=== PATIENT | male | born 1950 | race Caucasian/White ===

== ENCOUNTER → 2021-08-23 09:12 | Outpatient (CLI) | payer MEDICARE, SELFPAY ==
--- NOTE | 2021-08-24 13:08 | PFTCOMP ---
INTRODUCTION: The patient is a 71-year-old male that presents for pulmonary function studies secondary to a diagnosis of COPD. Respiratory therapy reported good patient effort. Bronchodilators were used during testing. INTERPRETATION: Forced expiration spirometry demonstrates the presence of a severe large airways obstructive ventilatory defect. There was a significant response to aerosolized bronchodilators noted. Spirograms are of good quality but do not plateau indicating slow emptying of the lungs. Body plethysmography was performed and revealed a decreased TLC to 5.43 L, 81% of predicted, indicative of a mild restrictive ventilatory impairment. Diffusing capacity by single breath CO is reduced at 53% of predicted. IMPRESSION: Partially reversible severe mixed ventilatory defect with symmetric reduction in diffusing capacity.
== END ==
PROVIDERS: Referring Provider Internal Medicine Critical Care Medicine; Visit Provider Internal Medicine Critical Care Medicine
DX: J44.9 Chronic obstructive pulmonary disease, unspecified (principal)
CPT/HCPCS: 94060; 94726; 94729

== ENCOUNTER → 2021-08-24 13:43 | Outpatient (CLI) | payer MEDICARE, SELFPAY ==
--- NOTE | 2021-08-24 13:47 | CT_ITS ---
STUDY: LOW DOSE CT LUNG CANCER SCREENING REASON FOR EXAM: Male, 71 years old. Long-term smoking history, 1 pack per day x52 years RADIATION DOSAGE (If Supplied By Facility): CTDIvol = ( 3.02 ) mGy, DLP = ( 115.88 ) mGycm TECHNIQUE: No contrast was administered. Low dose technique was utilized (average mAS-38 and kVp 120). 1.25 mm axial source images with a slice interval of 1.25-mm were reconstructed in lung windows. 2.5 mm axial source images with a slice interval of 2.5-mm were reconstructed in lung windows. 5.0 mm axial source images with a slice interval of 5.0-mm were reconstructed in soft tissue windows. Nodule measured using lung windows on PACS and/or independent workstation with automated measurement of minimum and maximum diameter. Nodule measurement reported as average diameter rounded to the nearest whole number. Growth is defined as an increase ins size of greater than 1.5 mm. COMPARISON: None. FINDINGS: There is severe underlying emphysema with bleb formation scattered throughout both lung danielson, particularly the upper lobes. There are chronic interstitial changes in both lung danielson with evidence of chronic bronchitis but there is no organized infiltrate, suspicious noncalcified mass or nodule, or groundglass opacifications. Soft tissue windows show normal-appearing thyroid gland. No suspicious adenopathy. There are calcified coronary vessels. No pleural or pericardial effusions. Bony structures show degenerative change. Limited cuts through the upper abdomen do not show suspicious abnormality CT/Low Dose CT Lung Screening IMPRESSION: Lung-RADS category 2 - Continue annual screening with LDCT in 12 months. IMPORTANT NOTES FOR USE: ACR Lung-RADS Version 1.1 Assessment Categories Release Date: 2018 Category: Coded 0-4 bases on nodule(s) with highest degree of suspicion. Negative screen is defined as categories 1 and 2; a positive screen is defined as categories 3 and 4. Category 3 and 4A nodules that are unchanged on interval CT should be coded as category 2, and individuals returned to screening in 12 months. Category 4X: Category 3 or 4 nodules with additional imaging findings that increase the suspicion of lung cancer, such as spiculation, GGN that doubles in size in 1 year, enlarged lymph notes, etc. Category Modifiers: S (significant finding unrelated to lung cancer) Electronically Signed: Mario Boyer MD at 17:11 EST , Service support ,
[2021-08-24 14:19] VITALS: PULSE 100; PULSE 104; PULSE 110; PULSE 111; PULSE 113; PULSE 97; PULSE 98; O2SAT 85; O2SAT 91; O2SAT 92; O2SAT 93; O2SAT 94
--- NOTE | 2021-08-24 14:36 | CPS ---
PATIENT RESTED THROUGHOUT TESTING D/T INCREASED WOB. HE EXPERIENCED DIZZINESS WELL INCREASED WOB DURING FIRST MINUTE WITH SPO2 AT 85% ROOM AIR. O2 APPLIED AT 2LPM FOR REMAINDER OF TESTING. HE PREVIOUSLY USED [employer] FOR DME/O2 HOWEVER STATES HE HAS A CONCENTRATOR THAT THEY HAVE NOT SERVICED IN MORE THAN 2 YEARS AND IT WILL NOT WORK (DESPITE MULTIPLE ATTEMPTS AT CONTACTING), THEREFORE HE DOES NOT WANT TO USE THEM FOR DME NOW. WALK INFORMATION FAXED TO ORDERING OFFICE FOR OXYGEN S/U
--- NOTE | 2021-08-25 07:07 | PCM.PSN.6M ---
PSN 6 Minute Walk Test 6 Minute Walk Test 6 Minute Walk Test: 6 Minute Walk Test PSN:6-Minute Walk Test Start: 08/24/21 14:18 Freq: Status: Active Protocol: [id number] Document 08/24/21 14:19 [facility] (Rec: 08/24/21 14:41 [facility] [id number]) 6 Minute Walk Test Date Performed 08/24/21 Time Performed 13:45 Height 5 ft 11 in Weight: 75.75 kg Weight in Pounds 167.[address]: Cristi Hahn Assistive device used: None Pre-test Oxygen Delivery Method Room Air Pulse Ox (%) 93 Pulse Rate (60-100 beats/min) 97 Dyspnea Steven Scale (0-10) 2 1st minute Oxygen Delivery Method Room Air Pulse Ox (%) 85 Pulse Rate (60-100 beats/min) 100 Dyspnea Steven Scale (0-10) 6 Number of Rests Taken 1 Reported Symptoms Increased Work of Breathing, Dizziness 2nd minute Oxygen Flow Rate (L/min) (L/min) 2 Oxygen Delivery Method Nasal Cannula Pulse Ox (%) 94 Pulse Rate (60-100 beats/min) 104 H Dyspnea Steven Scale (0-10) 4 Number of Rests Taken 1 Reported Symptoms Increased Work of Breathing 3rd minute Oxygen Flow Rate (L/min) (L/min) 2 Oxygen Delivery Method Nasal Cannula Pulse Ox (%) 91 Pulse Rate (60-100 beats/min) 113 H Dyspnea Steven Scale (0-10) 5 Number of Rests Taken 1 Reported Symptoms Increased Work of Breathing 4th minute Oxygen Flow Rate (L/min) (L/min) 2 Oxygen Delivery Method Nasal Cannula Pulse Ox (%) 92 Pulse Rate (60-100 beats/min) 110 H Dyspnea Steven Scale (0-10) 5 Number of Rests Taken 1 Reported Symptoms Increased Work of Breathing 5th minute Oxygen Flow Rate (L/min) (L/min) 2 Oxygen Delivery Method Nasal Cannula Pulse Ox (%) 92 Pulse Rate (60-100 beats/min) 111 H Dyspnea Steven Scale (0-10) 5 Number of Rests Taken 1 Reported Symptoms Increased Work of Breathing 6th minute Oxygen Flow Rate (L/min) (L/min) 2 Oxygen Delivery Method Nasal Cannula Pulse Ox (%) 93 Pulse Rate (60-100 beats/min) 110 H Dyspnea Steven Scale (0-10) 4 Number of Rests Taken 1 Reported Symptoms Increased Work of Breathing Post-test Oxygen Delivery Method Room Air Pulse Ox (%) 92 Pulse Rate (60-100 beats/min) 98 Dyspnea Steven Scale (0-10) 3 Reported Symptoms Increased Work of Breathing Full Laps Walked 8 Partial Lap, Number of Tiles Walked 37 Total Distance Walked (ft) 509 08/24/21 14:36 Cardiopulmonary Services by Mayela Kurtz PATIENT RESTED THROUGHOUT TESTING D/T INCREASED WOB. HE EXPERIENCED DIZZINESS WELL INCREASED WOB DURING FIRST MINUTE WITH SPO2 AT 85% ROOM AIR. O2 APPLIED AT 2LPM FOR REMAINDER OF TESTING. HE PREVIOUSLY USED [employer] FOR DME/O2 HOWEVER STATES HE HAS A CONCENTRATOR THAT THEY HAVE NOT SERVICED IN MORE THAN 2 YEARS AND IT WILL NOT WORK (DESPITE MULTIPLE ATTEMPTS AT CONTACTING), THEREFORE HE DOES NOT WANT TO USE THEM FOR DME NOW. WALK INFORMATION FAXED TO ORDERING OFFICE FOR OXYGEN S/U Initialized on 08/24/21 14:36 - END OF NOTE Interpretation Interpretation: The patient ambulated 509 feet over the course of 6 minutes beginning on room air without assistive devices. Pretesting oxygen saturation was noted to be 93% on room air. With ambulation, the samantha oxygen saturation was 85%. 2 L/min of supplemental oxygen was applied, and the patient was able to complete the remainder of the testing while maintaining appropriate oxygen saturations. Recommendations Recommendations: 2 L/min of supplemental oxygen should be utilized with exertion.
== END ==
PROVIDERS: PCP Internal Medicine Critical Care Medicine; Referring Provider Internal Medicine Critical Care Medicine; Visit Provider Internal Medicine Critical Care Medicine
DX: Z12.2 Encounter for screening for malignant neoplasm of respiratory organs (principal); J44.9 Chronic obstructive pulmonary disease, unspecified; F17.211 Nicotine dependence, cigarettes, in remission
CPT/HCPCS: 71271; 94618

== ENCOUNTER 2024-12-21 13:45 | Inpatient (IN) | payer MEDICARE, SELFPAY ==
[2024-12-21] VITALS (10 sets, daily range): BP systolic 114–158; BP diastolic 59–82; PULSE 61–102; RESP 17–26; TEMP 35.8–36.9; O2SAT 89–97; BMI 18.9; BMI 18.6
--- NOTE | 2024-12-21 14:25 | EKG12_ITS ---
Test Reason : SOB Blood Pressure : */* mmHG Vent. Rate : 84 BPM Atrial Rate : 84 BPM P-R Int : 156 ms QRS Dur : 62 ms QT Int : 362 ms P-R-T Axes : 91 60 87 degrees QTcB Int : 427 ms Sinus rhythm with marked sinus arrhythmia Otherwise normal ECG Confirmed by YVETTE WARNER, DENAE ([id number]), news video editor NGHIA DHALIWAL ([id number]) on 12/22/2024 8:47:36 AM Referred By: Confirmed By: DENAE CRAWFORD MD
--- NOTE | 2024-12-21 14:27 | EDS_ITS ---
HPI History of Present Illness Chief Complaint: Shortness of Breath Informant: patient and family Narrative Narrative: 74-year-old male presenting to the emergency room with dyspnea. Patient states he has a history of COPD and asthma. He states that he was seeing Dr. Hahn and Jazmyn Aguilar with [facility]. He states that he went and saw Dr. Reyes up but has not seen him any longer. This current therapy includes albuterol rescue inhaler and Breztri. He states he has a nebulizer at home but does not seem like it is working as well. Patient used to have oxygen but because of insurance cost he has not been using it. He notes over the wintertime he has had a 35 pound weight loss. He states that his cough is not productive of mucus but feels like it should be. Denies a fever. This particular episode of dyspnea is not so much an episode as it has been more chronic over the winter months. He states that he can barely take a shower without being very short of breath. Family notes that he is basically just been staying in his house. He went saw primary care today and they referred him to emergency. He states that he is agreeable to coming to the emergency but does not want to stay in the hospital because his son here and it left a bad taste in his mouth. Patient quit smoking in 2017. Prior to that he was a greater than [id number] smoker. He notes that he will occasionally get pain in his chest that goes from the right shoulder to the left shoulder. He states that when he starts to cough forcefully he will get some sharp pains in the right anterior chest. [facility] Medical History Ex-smoker Emphysema lung COPD (chronic obstructive pulmonary disease) Home Medications ?Medication ?Instructions ?Recorded ?Last Taken ?Type albuterol sulfate 90 mcg/actuation 2 puff inhalation Q 6H PRN 08/08/21 Unknown History aerosol inhaler (Ventolin HFA) lisinopril 5 mg tablet 5 mg PO DAILY 08/08/21 Unkno wn History omeprazole 40 mg capsule,delayed 40 mg PO DAILY Unknown History release fluticasone propionate 220 2 inh inhalation BID #12 gr ams 02/05/22 Unknown Rx mcg/actuation HFA aerosol inhaler (Flovent HFA) albuterol sulfate 2.5 mg/3 mL 2.5 mg (3 mL) inhalation Q4H PRN 03/06/22 Unknown Rx (0.083 %) solution for nebulization Sob &/Or Wheezing #180 mL Allergy/AdvReac Type Severity Reaction Status Date / Time doxycycline Allergy blisters, Verified 12/21/24 13:45 burning red skin Family History Mother Cancer Brother Cancer Social History Smoking Status: Former smoker quit date: 10/06/16 pack-years: 50 alcohol intake: current ROS ROS ED Constitutional Constitutional ED: Reports weight loss; Denies chills or fever(s) Eyes Eyes: Denies change in vision or diplopia ENT ENT ED: Denies ear pain, rhinorrhea or sore throat Cardiovascular Cardiovascular: Denies chest pain, orthopnea, palpitations or racing heartbeat Respiratory/Chest Respiratory/Chest: Reports cough, dyspnea and dyspnea on exertion; Denies ortho pnea Gastrointestinal Gastrointestinal: Denies abdominal pain, diarrhea, nausea or vomiting Genitourinary Genitourinary ED: Denies dysuria, hematuria or urinary frequency Musculoskeletal Musculoskeletal: Denies arthralgias or myalgias Integumentary Denies abscess or rash Neurologic Neurologic: Denies headache(s) or weakness Psychiatric Psychiatric: Denies anxiety, depression, suicidal ideation or suicidal thoughts Endocrine Endocrinology: Denies polydipsia, polyphagia or polyuria Allergic/Immunologic Allergic/Immunologic ED: Denies mouth swelling, tongue swelling or urticaria EXAM Physical Exam Const Vital Signs: 12/21/24 13:45 12/21/24 13:45 12/21/24 13:48 Temperature 97.1 F L 98 F Temperature Source Temporal Oral Pulse Rate 102 H 97 61 Respiratory Rate 26 H 22 H Respiratory Effort Respiratory Depth Respiratory Pattern Blood Pressure 158/79 H 123/70 H Blood Pressure Mean 105 87 Pulse Ox 89 94 97 Oxygen Delivery Method Room Air Room Air Nasal Cannula Oxygen Flow Rate (L/min) 3 12/21/24 14:00 12/21/24 14:57 12/21/24 14:59 Temperature Temperature Source Oral Pulse Rate 79 72 Respiratory Rate 17 18 Respiratory Effort Short of Breath Respiratory Depth Shallow Respiratory Pattern Tachypnea Normal Blood Pressure 122/78 H Blood Pressure Mean 92 Pulse Ox 94 Oxygen Delivery Method Nasal Cannula Nasal Cannula Oxygen Flow Rate (L/min) 3 2 12/21/24 16:14 Temperature Temperature Source Pulse Rate 79 Respiratory Rate 24 H Respiratory Effort Respiratory Depth Respiratory Pattern Blood Pressure 114/74 Blood Pressure Mean 87 Pulse Ox 94 Oxygen Delivery Method Nasal Cannula Oxygen Flow Rate (L/min) 2 Positive well nourished, well developed and cachectic General Appearance ED: well developed and cachectic Nutritional Appearance: cachectic HEENT Reports normocephalic, head/scalp atraumatic and moist mucous membranes Eyes PERRL and EOMs intact bilaterally Neck no lymphadenopathy, supple and no JVD Resp Resp Narrative: Patient is dyspneic at rest and cannot speak a full sentence without taking a breath. He has a moist rhonchorous cough but it is nonproductive. Auscultation: diminished lung sounds Cardio regular rate, regular rhythm and no murmurs GI normal to inspection, nondistended, normoactive bowel sounds and non-tender Palpation: soft Back/Spine no CVA tenderness and normal ROM Extremity normal to inspection General Extremety ED: Negative for edema General Extremity: Negative for edema Neuro oriented x3 and CN's II-XII intact bilaterally Sensorium / Orientation: alert Motor Exam: strength 5/5 throughout Psych mental status grossly normal Mood & Affect: Negative for depressed or tearful Skin no rashes or lesions noted and no wounds MDM MDM MDM Narrative Medical decision making narrative: Differential diagnosis includes but not limited to COPD exacerbation worsening COPD pneumonia postobstructive pneumonia pleural effusion heart failure malignancy pneumothorax My independent interpretation of the plain films of the chest is pneumonia with possible malignancy and small pleural effusion. Chronic changes associated with emphysema are noted. Patient's white count 12.2 with a hemoglobin of 12.1 platelet count is 618. BMP liver enzymes troponin within normal limits. CTA of the chest was obtained which demonstrates no pulmonary embolism. Areas of consolidation on the right. Cannot rule out a malignancy. Please see radiologist read for full details. Patient received a DuoNeb and Solu-Medrol. We also administered Rocephin azithromycin. Blood cultures obtained. Patient is agreeable to hospitalization. He has been receiving supplemental oxygen to help with his at rest hypoxia/dyspnea History & Record Review Discussion w/independent historian: Patient and Family Lab Data Attestation: I reviewed the patient's lab results. Labs: Laboratory Results - last 24 hr 12/21/24 14:40 WBC 12.2 H RBC 4.15 L Hgb 12.1 L Hct 37.3 L MCV 89.9 MCH 29.2 MCHC 32.4 RDW Std Deviation 46.7 H RDW Coeff of Joyce 14.1 Plt Count 618 H MPV 8.6 Immature Gran % (Auto) 0.400 Neut % (Auto) 80.8 H Lymph % (Auto) 8.9 L [place] % (Auto) 7.7 Eos % (Auto) 1.5 Baso % (Auto) 0.7 Absolute Neuts (auto) 9.9 H Absolute Lymphs (auto) 1.09 Nucleated RBC % 0 Sodium 139 Potassium 4.3 Chloride 104 Carbon Dioxide 24.3 Anion Gap 11 BUN 18 Creatinine 0.90 Estim Creat Clear Calc 62.84 Est GFR (MDRD) Non-Af 90 BUN/Creatinine Ratio 19.8 Glucose 94 Calcium 9.5 Total Bilirubin 0.17 Direct Bilirubin 0.08 AST 11 ALT 6 Alkaline Phosphatase 77 Troponin T High Sens 19 Total Protein 7.0 Albumin 3.4 Globulin 3.6 Radiography Diagnostic Testing: Clinical Impression(s) from Imaging Studies Chest X-Ray 12/21/24 15:13 IMPRESSION: 1. Emphysema with considerable patchy opacities on the RIGHT which may reflect pneumonia however there is suggestion of a 3.1 cm cavitary lesion in this region, not well delineated. Recommend CT, ideally with IV contrast. 2. Suspected trace to small RIGHT pleural effusion. 3. Additional description as above. Reading Location: [facility] Chest CTA 12/21/24 15:40 IMPRESSION: 1. No pulmonary embolism. 2. COPD with right pleural effusion and scattered areas of partial consolidation, likely pneumonia. Underlying mass can not be entirely excluded. This is new since the prior exam. Repeat CT in 3 months is recommended. Reading Location: [facility] EKG Initial EKG: Attestation: I personally reviewed and interpreted this EKG as follows: Comments: Sinus rhythm with a ventricular rate of 84 bpm. Noticed sinus arrhythmia. Management Discussion w/another healthcare provider: Hospitalist (Mame) Discharge Plan Triage Chief Complaint: Shortness of Breath ED Provider: Erick Chapa Dx/Rx/DC Orders Prescriptions: No Action lisinopril 5 mg tablet 5 mg PO DAILY albuterol sulfate [Ventolin HFA] 90 mcg/actuation HFA aerosol inhaler 2 puff inhalation Q6H PRN omeprazole 40 mg capsule,delayed release(DR/EC) 40 mg PO DAILY albuterol sulfate 2.5 mg /3 mL (0.083 %) solution for nebulization 2.5 mg inhalation Q4H PRN (Reason: Sob &/Or Wheezing) Qty: 180 3RF Flovent HFA 220 mcg/actuation HFA aerosol inhaler 2 inh inhalation BID Qty: 12 6RF Rx Instructions: administer with spacer Primary Care Provider: Hermes Castellon NP Referrals: Hermes Castellon [employer] [employer], [facility] [employer] [facility] [Primary Care Provider] - Print Language: Swedish
[2024-12-21] MEDS: Ipratropium/Albuterol Sulfate 3 ML AMPUL.NEB INHALATION ×2 (14:45→19:15)
[2024-12-21 14:56] LABS: Absolute Lymphocyte Count 1.09 X10^3/uL (0.83-4.51); Absolute Neutrophil Count 9.9 X10^3/uL (2.0-7.7); Basophil# 0.09 X10^3/uL; Basophil% 0.7 % (0-1); Eosinophil# 0.18 X10^3/uL; Eosinophils% 1.5 % (0-5); Hematocrit 37.3 % (40-54); Hemoglobin 12.1 g/dL (13.0-16.5); Lymphocyte # 1.09 X10^3/ul (0.83-4.51); Lymphocyte % 8.9 % (19-41); Mean Corp Hgb Conc 32.4 g/dL (32-36); Mean Corpuscular Hgb 29.2 pg (27.0-32.0); Mean Corpuscular Volume 89.9 fL (80-94); Mean Platelet Vol. 8.6 fl (6.2-12.0); Monocyte# 0.94 X10^3/uL; Monocyte% 7.7 % (0-10); NRBC Flagged by Analyzer 0 % (0-5); Neutrophil # 9.85 X10^3/uL (2.7-7.7); Neutrophil % 80.8 % (47-70); Platelet Count 618 K/mm3 (150-450); RBC Distribution Width CV 14.1 % (11.6-14.6); RBC Distribution Width SD 46.7 fl (35.1-43.9); Red Blood Count 4.15 M/mm3 (4.6-6.2); White Blood Count 12.2 K/mm3 (4.4-11.0)
[2024-12-21] MEDS: MethylPREDNISolone 125 MG/2 ML Vial IV (14:57)
--- NOTE | 2024-12-21 15:13 | RAD_ITS ---
PROCEDURE: CHEST 1 VIEW (PORTABLE) (RADCXPA_P), 12/21/2024 REASON FOR EXAM: DYSPNEA TECHNIQUE: A single portable AP view of the chest was obtained. COMPARISON: 08/24/2021 FINDINGS: Heart: Unremarkable. Mediastinum: Atherosclerosis in the aortic arch. Lungs/pleura: Emphysema. Considerable patchy opacities throughout the RIGHT lung, greatest in the mid lung zone where there is suggestion of a possible cavitary lesion measuring roughly 3.1 cm. Suspect a trace to small RIGHT pleural effusion.. No visible pneumothorax. Bones: Unremarkable. Lines and support devices: None. RAD/Chest 1 View (Portable) IMPRESSION: 1. Emphysema with considerable patchy opacities on the RIGHT which may reflect pneumonia however there is suggestion of a 3.1 cm cavitary lesion in this region, not well delineated. Recommend CT, ideally wit h IV contrast. 2. Suspected trace to small RIGHT pleural effusion. 3. Additional description as above. Reading Location: [id number]
[2024-12-21 15:15] LABS: AST(SGOT) 11 U/L (<=37); Alanine Aminotransfer ALT/SGPT 6 U/L (<=46); Albumin, Serum 3.4 g/dL (3.4-4.8); Alkaline Phosphatase 77 U/L (40-129); Anion Gap 11 (5-15); BUN 18 mg/dL (4-19); BUN/Creat Ratio 19.8 RATIO (10-20); Bilirubin, Direct 0.08 mg/dL (0.00-0.30); Calcium,Total 9.5 mg/dL (7.6-11.0); Carbon Dioxide 24.3 mmol/L (21.0-32.0); Chloride 104 mmol/L (98-108); EST Glomerular Filtration Rate 90 (>60); Estimated Creatinine Clearance 62.84 ml/min (50-250); Globulin 3.6 g/dL (2.2-4.2); Glucose 94 mg/dL (70-99); Potassium 4.3 mmol/L (3.3-5.1); Sodium Level 139 mmol/L (133-145); Total Bilirubin 0.17 mg/dL (0.00-1.30); Troponin T High Sensitivity 19 ng/L (<=22)
--- NOTE | 2024-12-21 15:40 | CT_ITS ---
EXAM: CT Angiography Chest Without and With Intravenous Contrast CLINICAL INDICATION: DYSPNEA ? R LUNG MASS ? PE TECHNIQUE: Axial computed tomographic angiography images of the chest without and with intravenous contrast. This CT exam was performed using one or more of the following dose reduction techniques: automated exposure control, adjustment of the mA and/or kV according to patient size, and/or use of iterative reconstruction technique. MIP reconstructed images were created and reviewed. COMPARISON: CTA Chest dated 08/24/2021 FINDINGS: PULMONARY ARTERIES: Unremarkable. No pulmonary embolism. AORTA: No acute findings. No thoracic aortic aneurysm. LUNGS AND PLEURAL SPACES: COPD with right pleural effusion and scattered areas of partial consolidation, likely pneumonia. Underlying mass can not be entirely excluded. This is new since the prior exam. Repeat CT in 3 months is recommended. HEART: Unremarkable. No cardiomegaly. No significant pericardial effusion. No evidence of RV dysfunction. BONES/JOINTS: No acute fracture. No dislocation. SOFT TISSUES: Unremarkable. LYMPH NODES: Unremarkable. No enlarged lymph nodes. CT/CTA Chest W/WO Contrast IMPRESSION: 1. No pulmonary embolism. 2. COPD with right pleural effusion and scattered areas of partial consolidati on, likely pneumonia. Underlying mass can not be entirely excluded. This is new since the prior exam. Repeat CT in 3 months is recommended. Reading Location: [facility]
--- NOTE | 2024-12-21 16:39 | PCM.HP.STD ---
HPI - General General Date of Admission: 12/21/24 Date of Service: 12/21/24 Chief Complaint: Worsening shortness of breath with weight loss HPI Narrative YUMIKO QUIROGA, is a 74 M who presented to [facility] ED on 12/21/2024 with worsening shortness of breath and weight loss. Patient lives at home with himself. Has history of smoking, quit back in 2017. He previously followed with pulmonology here back in 2021 for COPD with emphysema and chronic respiratory failure on 2 L nasal cannula. However, due to issues with paying for oxygen he stopped following there and established briefly with Dr. Zamudio. Notes that he did not care for Dr. Zamudio and now has not seen a lung doctor for the past few years. He also has not had home oxygen for the past few years. He has had a chronic cough with worsening shortness of breath over the past 3 to 4 months. He also reports a roughly 30 pound weight loss over that time. For these reasons he came in today for further evaluation. Was requiring 2 L nasal cannula in the ED to maintain appropriate oxygen saturations. Was otherwise afebrile, normotensive and in normal sinus rhythm. Labs notable for WBC count 12, otherwise CBC and CMP benign. CTA chest showed no PE but did show COPD with right pleural effusion and scattered areas of partial consolidation with concern for underlying mass. Given these findings, hospitalist was contacted for admission. I saw the patient at bedside in the ED, daughter was present. Patient was mildly fatigued and thin appearing but otherwise sitting up comfortably in bed, conversing normally and in no acute distress. He denied any shortness of breath at rest. Did have a few episodes of dry cough during our encounter. He was initially adamant that he did not want to come into the hospital as his son here and it is difficult for him to be here. However, after ED physician talked with him and his daughter he was agreeable to staying. He does note that he is able to do things for himself at home but he has felt weaker than his normal recently. No other acute concerns at this time. [facility] Medical History (Updated 12/21/24 @ 17:46 by Catherine Kelley) Asthma Ex-smoker Emphysema lung COPD (chronic obstructive pulmonary disease) Home Medications ?Medication ?Instructions ?Recorded ?Last Taken ?Type albuterol sulfate 90 mcg/actuation 2 puff inhalation Q6H PRN 08/08/21 Unknown History aerosol inhaler (Ventolin HFA) shortness of breath or wheezing lisinopril 5 mg tablet 5 mg PO DAILY 08/08/21 Unknown History omeprazole 40 mg capsule,delayed 40 mg PO DAILY 08/08/21 Unknown History release fluticasone propionate 220 2 inh inhalation BID #12 grams 02/05/22 Unknown Rx mcg/actuation HFA aerosol inhaler (Flovent HFA) albuterol sulfate 2.5 mg/3 mL 2.5 mg (3 mL) inhalation Q4H PRN 03/06/22 Unknown Rx (0.083 %) solution for nebulization Sob &/Or Wheezing #180 mL amlodipine 5 mg tablet 5 mg PO DAILY 12/21/24 Unknown History budesonide 160 mcg-glycopyr 9 2 inh inhalation BID 12/21/24 Unknown History mcg-formot 4.8 mcg/actuation HFA inhaler (Breztri Aerosphere) chlorthalidone 25 mg tablet 25 mg PO DAILY 12/21/24 Unknown History diclofenac sodium 1 % topical gel 2 ea topical 4X/DAY PRN pain 12/21/24 Unknown History guaifenesin 600 mg tablet, 600 mg PO Q12H 12/21/24 12/21/24 History extended release 12 hr (Mucus Relief ER) montelukast 10 mg tablet 10 mg PO QHS 12/21/24 Unknown History tamsulosin 0.4 mg capsule 0.4 mg PO DAILY 12/21/24 Unknown History Allergy/AdvReac Type Severity Reaction Status Date / Time doxycycline Allergy blisters, Verified 12/21/24 13:45 burning red skin Family History Mother Cancer Brother Cancer Social History Smoking Status: Former smoker quit date: 10/06/16 pack-years: 50 alcohol intake: current ROS Constitutional Constitutional: Reports fatigue and weakness; Denies chills or fever(s) Eyes Eyes: Denies change in vision Cardiovascular Cardiovascular: Denies chest pain Respiratory/Chest Respiratory/Chest: Reports cough and shortness of breath with exertion; Denies productive cough, shortness of breath at rest or wheezing Gastrointestinal Gastrointestinal: Denies abdominal pain Musculoskeletal Musculoskeletal: Denies arthralgias or myalgias Neurologic Neurologic: Denies dizziness or headache(s) Vital Signs Vital Signs Vital Signs: 12/21/24 13:45 12/21/24 13:45 12/21/24 13:48 Temperature 97.1 F L 98 F Temperature Source Temporal Oral Pulse Rate 102 H 97 61 Respiratory Rate 26 H 22 H Respiratory Effort Respiratory Depth Respiratory Pattern Blood Pressure 158/79 H 123/70 H Blood Pressure Mean 105 87 Pulse Ox 89 94 97 Oxygen Delivery Method Room Air Room Air Nasal Cannula Oxygen Flow Rate (L/min) 3 12/21/24 14:00 12/21/24 14:57 12/21/24 14:59 Temperature Temperature Source Oral Pulse Rate 79 72 Respiratory Rate 17 18 Respiratory Effort Short of Breath Respiratory Depth Shallow Respiratory Pattern Tachypnea Normal Blood Pressure 122/78 H Blood Pressure Mean 92 Pulse Ox 94 Oxygen Delivery Method Nasal Cannula Nasal Cannula Oxygen Flow Rate (L/min) 3 2 12/21/24 16:14 Temperature Temperature Source Pulse Rate 79 Respiratory Rate 24 H Respiratory Effort Respiratory Depth Respiratory Pattern Blood Pressure 114/74 Blood Pressure Mean 87 Pulse Ox 94 Oxygen Delivery Method Nasal Cannula Oxygen Flow Rate (L/min) 2 Weight Weight: 61.7 kg Body Mass Index (BMI) 18.9 Physical Exam Const alert, oriented x3 and no apparent distress Constitutional Narrative: Elderly male, thin and somewhat cachectic appearing, mildly fatigued appearing but otherwise sitting up comfortably in bed, conversing normally and in no acute distress. General Appearance: cooperative and comfortable HEENT normocephalic, head/scalp atraumatic, hearing grossly normal bilaterally, nasal mucous membranes and turbinates normal and moist oral mucous membranes Eyes PERRL, EOMs intact bilaterally and conjunctivae normal Neck full ROM Chest inspection of chest normal Resp normal respiratory effort and no use of accessory muscles Resp Narrative: Breathing comfortably on 2 L nasal cannula at rest. Decreased breath sounds in right upper to midlung zone with mild wheezing and crackles noted in that area. Otherwise fairly good air movement throughout. Cardio regular rate, regular rhythm, no murmurs and peripheral pulses 2+ throughout GI normal to inspection, nondistended, normoactive bowel sounds, soft to palpation, non-tender and non-distended Back/Spine normal ROM Extremity normal to inspection, full ROM and no pedal edema Skin no rashes or lesions noted Neuro moves all extremities and no focal motor deficits Speech: speech normal Psych mental status grossly normal Results Lab / Micro Data 12/21/24 14:40 12/21/24 14:40 Labs: Laboratory Results - last 24 hr 12/21/24 14:40: WBC 12.2 H, RBC 4.15 L, Hgb 12.1 L, Hct 37.3 L, MCV 89.9, MCH 29.2, MCHC 32.4, RDW Std Deviation 46.7 H, RDW Coeff of Joyce 14.1, Plt Count 618 H, MPV 8.6, Immature Gran % (Auto) 0.400, Neut % (Auto) 80.8 H, Lymph % (Auto) 8.9 L, [place] % (Auto) 7.7, Eos % (Auto) 1.5, Baso % (Auto) 0.7, Absolute Neuts (auto) 9.9 H, Absolute Lymphs (auto) 1.09, Nucleated RBC % 0, Sodium 139, Potassium 4.3, Chloride 104, Carbon Dioxide 24.3, Anion Gap 11, BUN 18, Creatinine 0.90, Estim Creat Clear Calc 62.84, Est GFR (MDRD) Non-Af 90, BUN/Creatinine Ratio 19.8, Glucose 94, Calcium 9.5, Total Bilirubin 0.17, Direct Bilirubin 0.08, AST 11, ALT 6, Alkaline Phosphatase 77, Troponin T High Sens 19, Total Protein 7.0, Albumin 3.4, Globulin 3.6 Imaging Radiology Impression Chest X-Ray 12/21/24 15:13 IMPRESSION: 1. Emphysema with considerable patchy opacities on the RIGHT which may reflect pneumonia however there is suggestion of a 3.1 cm cavitary lesion in this region, not well delineated. Recommend CT, ideally with IV contrast. 2. Suspected trace to small RIGHT pleural effusion. 3. Additional description as above. Reading Location: [facility] Chest CTA 12/21/24 15:40 IMPRESSION: 1. No pulmonary embolism. 2. COPD with right pleural effusion and scattered areas of partial consolidation, likely pneumonia. Underlying mass can not be entirely excluded. This is new since the prior exam. Repeat CT in 3 months is recommended. Reading Location: [facility] Assessment & Plan Assessment/Plan (1) Pneumonia: (2) Chronic respiratory failure with hypoxia: (3) Weight loss: PLAN: Plan Patient is a 74-year-old male who presented to [facility] ED on 12/21/2024 with worsening shortness of breath and weight loss. 1. Concern for new lung cancer with right pleural effusion and postobstructive pneumonia ? Admit under inpatient status to PCU. Pulmonology consulted. CTA chest showed COPD changes with right pleural effusion and scattered areas of partial consolidation with concern for underlying mass. Given his significant recent weight loss and smoking history, highest concern is for new lung cancer with postobstructive pneumonia. Will keep n.p.o. at midnight for possible bronchoscopy tomorrow. Will treat pneumonia with vancomycin and cefepime for now. Sputum culture ordered. Appreciate further pulmonology recommendations. 2. 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 Previously followed with outpatient pulmonology. Was previously on 2 L nasal cannula at home but self discontinued oxygen due to cost. Lower concern for true COPD exacerbation at this time, will hold on IV steroids and treat with DuoNebs only as needed. Continue home montelukast and long-acting inhaler. Will presumably need supplemental oxygen on discharge. 3. Concern for malnutrition ? Nutrition consulted. BMI 18 on admit. Suspect secondary to weight loss in setting of suspected cancer. 4. Acute debility ? PT/OT/case management consulted. Patient lives at home alone and reports worsening weakness in setting of suspected cancer. Appreciate therapy recommendations. Chronic medical conditions: ? Hypertension: Continue home amlodipine. Will hold chlorthalidone and lisinopril for now, restart as needed. ? GERD: Continue home PPI. ? BPH with obstructive symptoms: Continue home Flomax. ? Former tobacco use: Encouraged continued cessation. DVT prophylaxis: Lovenox CODE STATUS: DNR CCA, DNI Expected disposition: Home, 2 to 3 days Total clinical time spent by myself addressing the patient's medical issues, reviewing all the data, and collaborating with patient's care team: 75 minutes. Charges/Coding Visit Charges Inpatient E&M: 12652 Init Hosp L3
[2024-12-21] MEDS: Ceftriaxone 1 GM/50 ML BAG IV (17:07)
[2024-12-21] MEDS: Azithromycin 500 MG in 0.9% Normal Saline (250mL Bag) 250 ML 255 MG IV (17:47)
[2024-12-21] MEDS: Vancomycin HCl 1,500 MG in 0.9% Normal Saline (500mL Bag) 500 ML 250 MG IV (18:41)
--- NOTE | 2024-12-21 18:48 | PCM.RX.CS ---
Consult Antibiotic Management Pharmacy has been consulted to manage selected antibiotic: Vancomycin Type of Intervention Type of Consult: New start Suspected Infection Suspected Infection: Pneumonia Labs Labs: Sodium 139 mmol/L (133-145) 12/21/24 14:40 Potassium 4.3 mmol/L (3.3-5.1) 12/21/24 14:40 Chloride 104 mmol/L (98-108) 12/21/24 14:40 Carbon Dioxide 24.3 mmol/L (21.0-32.0) 12/21/24 14:40 Anion Gap 11 (5-15) 12/21/24 14:40 BUN 18 mg/dL (4-19) 12/21/24 14:40 Creatinine 0.90 mg/dL (0.70-1.20) 12/21/24 14:40 Est GFR (MDRD) Non-Af 90 (>60) 12/21/24 14:40 BUN/Creatinine Ratio 19.8 RATIO (10-20) 12/21/24 14:40 Glucose 94 mg/dL (70-99) 12/21/24 14:40 Dosing Weight Weight used for dosin.6 kg Estimated Creatinine Clearance Estimated Creatinine Clearance: 63 ML/MIN Goal Trough Goal Trough: 15-20 mcg/mL Pharmacy Plan for Drug Dosing Pharmacy Plan for Drug Dosing: Give initial load dose of 1500mg IV x1, then continue with 750mg q12h. Check a trough before the 4th overall dose. Pharmacy Service will continue to monitor and adjust dosing as required. Follow-Up Labs Follow-Up Labs: Trough: Vancomycin Date/Time Labs Ordered Labs to be done on [date and time ordered]: 12/23/24 06:30
[2024-12-21] MEDS: Budesonide Respules 0.5 MG/2 ML AMPUL.NEB. INHALATION (19:15)
[2024-12-21] MEDS: Cefepime HCl 2 GM in 0.9% Normal Saline (100mL MB+) 100 ML IV (22:00)
[2024-12-21] MEDS: Montelukast 10 MG Tablet PO (22:04)
[2024-12-22] VITALS (8 sets, daily range): BP systolic 105–132; BP diastolic 62–96; PULSE 60–98; RESP 16–20; TEMP 36.4–36.6; O2SAT 91–95
[2024-12-22] MEDS: Cefepime HCl 2 GM in 0.9% Normal Saline (100mL MB+) 100 ML IV ×3 (05:29→21:24)
[2024-12-22 05:42] LABS: Hematocrit 33.8 % (40-54); Mean Corp Hgb Conc 32.5 g/dL (32-36); Mean Corpuscular Hgb 28.7 pg (27.0-32.0); Mean Corpuscular Volume 88.3 fL (80-94); Mean Platelet Vol. 8.9 fl (6.2-12.0); Platelet Count 570 K/mm3 (150-450); RBC Distribution Width CV 14.4 % (11.6-14.6); RBC Distribution Width SD 46.4 fl (35.1-43.9); Red Blood Count 3.83 M/mm3 (4.6-6.2)
[2024-12-22] MEDS: Vancomycin HCl 750 MG in 0.9% Normal Saline (250mL Bag) 250 ML 250 MG IV ×2 (06:11→18:10)
[2024-12-22 06:14] LABS: Anion Gap 10 (5-15); BUN 18 mg/dL (4-19); Calcium,Total 9.2 mg/dL (7.6-11.0); Carbon Dioxide 23.8 mmol/L (21.0-32.0); Chloride 104 mmol/L (98-108); Creatinine, Serum 0.76 mg/dL (0.70-1.20); EST Glomerular Filtration Rate 94 (>60); Estimated Creatinine Clearance 69.44 ml/min (50-250); Glucose 159 mg/dL (70-99); Potassium 4.2 mmol/L (3.3-5.1); Sodium Level 138 mmol/L (133-145)
[2024-12-22] MEDS: Budesonide Respules 0.5 MG/2 ML AMPUL.NEB. INHALATION ×2 (07:04→19:20)
[2024-12-22] MEDS: Albuterol 2.5 MG/3 ML VIAL.NEB. INHALATION (07:04)
--- NOTE | 2024-12-22 07:47 | PCM.PN.HOSP ---
Reason for Visit Reason for Visit: Diagnoses Pneumonia, unspecified organism (12/21/24) Chronic respiratory failure with hypoxia (12/21/24) Abnormal weight loss (12/21/24) Objective Data Objective Data Vital Signs: Vital Signs Temp Pulse Resp BP Pulse Ox O2 Del Method O2 Flow Rate 97.9 F 60 18 105/62 95 Nasal Cannula 2 12/22/24 03:20 12/22/24 03:20 12/22/24 03:20 12/22/24 03:20 12/22/24 03:20 12/22/24 03:20 12/22/24 03:20 Oxygen Flow Rate (L/min) 2 Oxygen Delivery Method Nasal Cannula Weight: 133 lb 9.602 oz Body Mass Index (BMI) 18.6 Intake & Output: Intake and Output for Last 24 Hours 12/20/24 12/21/24 12/22/24 23:59 23:59 23:59 Intake Total 935.00 / 935.00 365 / 365 Balance 935.00 / 935.00 365 / 365 Lab / Micro Data 12/22/24 04:28 12/22/24 04:28 Labs: Laboratory Results - last 24 hr 12/21/24 14:40: WBC 12.2 H, RBC 4.15 L, Hgb 12.1 L, Hct 37.3 L, MCV 89.9, MCH 29.2, MCHC 32.4, RDW Std Deviation 46.7 H, RDW Coeff of Joyce 14.1, Plt Count 618 H, MPV 8.6, Immature Gran % (Auto) 0.400, Neut % (Auto) 80.8 H, Lymph % (Auto) 8.9 L, [place] % (Auto) 7.7, Eos % (Auto) 1.5, Baso % (Auto) 0.7, Absolute Neuts (auto) 9.9 H, Absolute Lymphs (auto) 1.09, Nucleated RBC % 0, Sodium 139, Potassium 4.3, Chloride 104, Carbon Dioxide 24.3, Anion Gap 11, BUN 18, Creatinine 0.90, Estim Creat Clear Calc 62.84, Est GFR (MDRD) Non-Af 90, BUN/Creatinine Ratio 19.8, Glucose 94, Calcium 9.5, Total Bilirubin 0.17, Direct Bilirubin 0.08, AST 11, ALT 6, Alkaline Phosphatase 77, Troponin T High Sens 19, Total Protein 7.0, Albumin 3.4, Globulin 3.6 12/22/24 04:28: WBC 4.0 L, RBC 3.83 L, Hgb 11.0 L, Hct 33.8 L, MCV 88.3, MCH 28.7, MCHC 32.5, RDW Std Deviation 46.4 H, RDW Coeff of Joyce 14.4, Plt Count 570 H, MPV 8.9, Sodium 138, Potassium 4.2, Chloride 104, Carbon Dioxide 23.8, Anion Gap 10, BUN 18, Creatinine 0.76, Estim Creat Clear Calc 69.44, Est GFR (MDRD) Non-Af 94, BUN/Creatinine Ratio 24.0 H, Glucose 159 H, Calcium 9.2 Radiography Diagnostic Testing: Radiology Impression Chest X-Ray 12/21/24 15:13 IMPRESSION: 1. Emphysema with considerable patchy opacities on the RIGHT which may reflect pneumonia however there is suggestion of a 3.1 cm cavitary lesion in this region, not well delineated. Recommend CT, ideally with IV contrast. 2. Suspected trace to small RIGHT pleural effusion. 3. Additional description as above. Reading Location: [facility] Chest CTA 12/21/24 15:40 IMPRESSION: 1. No pulmonary embolism. 2. COPD with right pleural effusion and scattered areas of partial consolidation, likely pneumonia. Underlying mass can not be entirely excluded. This is new since the prior exam. Repeat CT in 3 months is recommended. Reading Location: [facility] Physical Exam Narrative Seen and examined. Patient has symptoms of shortness of breath, on and off cough with greenish-yellow sputum and dyspnea ongoing since July 2024. Did not measure temperature. Physical exam General: Alert, Oriented x3, Cooperative HEENT: Hard of hearing. Atraumatic, PERRLA, EOMI, Normocephalic Oral: Oral mucosa dry no Gingival or Mucosal Lesions/ Ulcerations Neck: Supple, No JVD, Negative Carotid Bruits Chest wall/Lungs: Air entry diminished in bilateral lung bases. Bilateral coarse crepitations worse in right lung base Cardiovascular: Regular rate, Regular Rhythm, Normal S1, Normal S2, No M/G/R Abdomen: Bowel Sounds Present, Soft, Non Tender, Non-Distended : No dysuria. No renal angle tenderness. No suprapubic tenderness. Extremities: No edema, Capillary Refill Less than 3 Seconds Skin: No rashes, No breakdown Musculoskeletal: No Tenderness to Palpation of Joints or Extremities. ROM restricted Neurological: Cranial nerves II-XII grossly intact, DTR 2+/4. No acute focal neurological deficit. Psych/Mental Status: Flat affect Assessment & Plan Assessment/Plan (1) Pneumonia: (2) Chronic respiratory failure with hypoxia: (3) Weight loss: PLAN: Plan Patient is a 74-year-old male who presented to [facility] ED on 12/21/2024 with worsening shortness of breath and weight loss. 1. Right lower lobe consolidation with right pleural effusion with suspicion of neoplasm and postobstructive pneumonia. Patient is being admitted in PCU. CTA chest immediately reviewed and shows no pulmonary embolism. Right lower lobe shows scattered areas of partial consolidation likely pneumonia and underlying mass. There is new since prior exam of CT low-dose screening in August 2021 There is no pulmonary service available in person in the hospital for bronchoscopy. Tele PCC was consulted and I discussed with Dr. Carlos and he said no urgent need for bronchoscopy. He ordered noninvasive test for pneumonia including fungal and advised ultrasound guided diagnostic thoracocentesis for culture and fluid cytology. Patient on IV IV vancomycin and 2. 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 Previously followed with outpatient pulmonology. Was previously on 2 L nasal cannula at home but self discontinued oxygen due to cost. Does not seem to be in acute COPD exacerbation therefore hold steroid. Continue DuoNeb 3. Moderate protein calorie malnutrition: Patient lost 35 pounds since August 2024 4. He said he was 150 pound in 2017 and then again weight and was 176 in 2017 after quitting smoking. He was 150 pound about August 29. This raises the concern for cancer. This was explained to patient's daughter at the bedside. BMI 18.6 kg/m? ? Nutrition consulted. 4. Acute debility ? PT/OT/case management consulted. Patient lives at home alone and reports worsening weakness in setting of suspected cancer. Appreciate therapy recommendations. Chronic medical conditions: ? Hypertension: Continue home amlodipine. Will hold chlorthalidone and lisinopril for now, restart as needed. ? GERD: Continue home PPI. ? BPH with obstructive symptoms: Continue home Flomax. ? Former tobacco use: 40 pack years smoking. Quit smoking 2017 encouraged continued cessation. DVT prophylaxis: Lovenox CODE STATUS: DNR CCA, DNI Expected disposition: Home, 2 to 3 days Clinical Impression(s) from Imaging Studies Chest X-Ray 12/21/24 15:13 IMPRESSION: 1. Emphysema with considerable patchy opacities on the RIGHT which may reflect pneumonia however there is suggestion of a 3.1 cm cavitary lesion in this region, not well delineated. Recommend CT, ideally with IV contrast. 2. Suspected trace to small RIGHT pleural effusion. 3. Additional description as above. Reading Location: [facility] Chest CTA 12/21/24 15:40 IMPRESSION: 1. No pulmonary embolism. 2. COPD with right pleural effusion and scattered areas of partial consolidation, likely pneumonia. Underlying mass can not be entirely excluded. This is new since the prior exam. Repeat CT in 3 months is recommended. Reading Location: [facility] Laboratory Results 12/21/24 14:40: WBC 12.2 H, RBC 4.15 L, Hgb 12.1 L, Hct 37.3 L, MCV 89.9, MCH 29.2, MCHC 32.4, RDW Std Deviation 46.7 H, RDW Coeff of Joyce 14.1, Plt Count 618 H, MPV 8.6, Immature Gran % (Auto) 0.400, Neut % (Auto) 80.8 H, Lymph % (Auto) 8.9 L, [place] % (Auto) 7.7, Eos % (Auto) 1.5, Baso % (Auto) 0.7, Absolute Neuts (auto) 9.9 H, Absolute Lymphs (auto) 1.09, Nucleated RBC % 0, Sodium 139, Potassium 4.3, Chloride 104, Carbon Dioxide 24.3, Anion Gap 11, BUN 18, Creatinine 0.90, Estim Creat Clear Calc 62.84, Est GFR (MDRD) Non-Af 90, BUN/Creatinine Ratio 19.8, Glucose 94, Calcium 9.5, Total Bilirubin 0.17, Direct Bilirubin 0.08, AST 11, ALT 6, Alkaline Phosphatase 77, Troponin T High Sens 19, Total Protein 7.0, Albumin 3.4, Globulin 3.6 12/22/24 04:28: WBC 4.0 L, RBC 3.83 L, Hgb 11.0 L, Hct 33.8 L, MCV 88.3, MCH 28.7, MCHC 32.5, RDW Std Deviation 46.4 H, RDW Coeff of Joyce 14.4, Plt Count 570 H, MPV 8.9, Sodium 138, Potassium 4.2, Chloride 104, Carbon Dioxide 23.8, Anion Gap 10, BUN 18, Creatinine 0.76, Estim Creat Clear Calc 69.44, Est GFR (MDRD) Non-Af 94, BUN/Creatinine Ratio 24.0 H, Glucose 159 H, Calcium 9.2 Charges/Coding Addendum Addendum: Total time of the visit including total time spent in counseling or coordination of care, (more than 50% of the total time, spent in obtaining medical information from nurses and other ancillary care providers ,explaining to the patient about labs, imaging, diagnosis and management of active complex medical conditions), detailed history taking with patient and her daughter review of medical chart and previous imaging, discussion with pulmonology, review of labs and imaging is 45 minutes. Visit Charges Inpatient E&M: 09579 Subs Hosp L3
--- NOTE | 2024-12-22 08:53 | PCMCONS.TICU ---
HPI Consult Data Date of Consult: 12/22/24 HPI Narrative Reason for Consultation: PNA, possible lung Ca HPI Narrative: YUMIKO QUIROGA, is a 74 M w/ COPD previously on home O2, h/o nasal skin Ca s/p resection, GERD, BPH, HTN, h/o tobacco use who presents with worsening dyspnea and cough. He has noted chronic progressive cough over the past 3-4 months since around Thanksgiving time, productive of greenish-whitish phlegm but denies any blood/black color. During this time he also noted worsening dyspnea and wheezing. Also with 30lb unintentional weight loss during this period, pt reports having similar appetite/PO intake though has been somewhat low for a long time. Also having some migratory pains in his upper chest and shoulders which waxes/wanes, currently no pain and denies any rib/pleuritic pain. Denies fevers/chills, sick contacts, N/V, abd pain, diarrhea, rashes, or other prominent sx. On arrival here he was noted to be hypoxic requiring 2L NC. CTA chest showed R side predominant infiltrates, R pleural effusion, no PE, no obvious lymphadenopathy. He was started on empiric abx and nebs. Overall feels breathing a bit better today. He denies ever having PNA in the past. Reports having to be hospitalized in 2017 for COPD exacerbation, but no hospitalizations/ER visits since. He used to be on home O2 but had this taken back several yrs ago since he lost insurance; also has not seen his quote clerk since around that time as well. He reports having a skin Ca around his nasal area which was resected, but never required chemo/XRT; no other cancer history. His mother and brother had Ca but he is unsure if it was lung. He smoked for abt 52 yrs but quit in 2017. Occasional EtOH. He owns 1 cat, no other animals. He reports some visible mold on the srinivasan in 2 of the rooms in his house for many months; he reports getting this cleaned but then it recurs. Denies any recent travel, no unusual lung infections such as TB/fungal disease in the past Denies fevers, chills, nausea, vomiting, diarrhea, syncope, presyncope, dysphagia, odynophagia, chest pain, reflux symptoms, belly pain, dysuria, hematuria, melena, hematochezia, seizures, paralysis, or other neurological changes. ROS: 12-point ROS negative except as per [facility]PI [facility] Medical History (Updated 12/21/24 @ 17:46 by Catherine Kelley) Asthma Ex-smoker Emphysema lung COPD (chronic obstructive pulmonary disease) Home Medications ?Medication ?Instructions ?Recorded ?Last Taken ?Type albuterol sulfate 90 mcg/actuation 2 puff inhalation Q6H PRN 08/08/21 Unknown History aerosol inhaler (Ventolin HFA) shortness of breath or wheezing lisinopril 5 mg tablet 5 mg PO DAILY 08/08/21 Unknown History omeprazole 40 mg capsule,delayed 40 mg PO DAILY 08/08/21 Unknown History release fluticasone propionate 220 2 inh inhalation BID #12 grams 02/05/22 Unknown Rx mcg/actuation HFA aerosol inhaler (Flovent HFA) albuterol sulfate 2.5 mg/3 mL 2.5 mg (3 mL) inhalation Q4H PRN 03/06/22 Unknown Rx (0.083 %) solution for nebulization Sob &/Or Wheezing #180 mL amlodipine 5 mg tablet 5 mg PO DAILY 12/21/24 Unknown History budesonide 160 mcg-glycopyr 9 2 inh inhalation BID 12/21/24 Unknown History mcg-formot 4.8 mcg/actuation HFA inhaler (Breztri Aerosphere) chlorthalidone 25 mg tablet 25 mg PO DAILY 12/21/24 Unknown History diclofenac sodium 1 % topical gel 2 ea topical 4X/DAY PRN pain 12/21/24 Unknown History guaifenesin 600 mg tablet, 600 mg PO Q12H 12/21/24 12/21/24 History extended release 12 hr (Mucus Relief ER) montelukast 10 mg tablet 10 mg PO QHS 12/21/24 Unknown History tamsulosin 0.4 mg capsule 0.4 mg PO DAILY 12/21/24 Unknown History Allergy/AdvReac Type Severity Reaction Status Date / Time doxycycline Allergy blisters, Verified 12/21/24 13:45 burning red skin Family History Mother Cancer Brother Cancer Social History Smoking Status: Former smoker quit date: 10/06/16 pack-years: 50 alcohol intake: current Objective Data Objective Data Vital Signs: Vital Signs Last response Temperature 36.4 C L 12/22/24 08:40 Temperature Source Oral 12/22/24 08:40 Pulse Rate 70 12/22/24 08:40 Respiratory Rate 20 H 12/22/24 08:40 Respiratory Effort Short of Breath 12/21/24 14:00 Respiratory Depth Normal 12/22/24 03:00 Respiratory Pattern Normal 12/22/24 03:00 Blood Pressure 126/67 H 12/22/24 08:40 Blood Pressure Mean 86 12/22/24 08:40 Blood Pressure Source Monitor 12/22/24 08:40 Blood Pressure Position Semi-Fowlers 12/22/24 08:40 Blood Pressure Location Right Arm 12/22/24 08:40 Pulse Ox 95 12/22/24 08:40 Oxygen Delivery Method Nasal Cannula 12/22/24 08:40 Oxygen Flow Rate (L/min) 2 12/22/24 08:40 I&O: I&O Last 24 Hours 12/21/24 12/21/24 12/22/24 11:59 23:59 11:59 Intake Total 935.00 / 935.00 365 / 365 Balance 935.00 / 935.00 365 / 365 I&O: Total Stay 12/21/24 13:45 thru 12/22/24 07:36 Intake Total 1300.00 Balance 1300.00 Current Meds Ordered / Administered: Current meds ordered / Administered Generic Name Dose Route Start Last Admin Trade Name Freq PRN Reason Stop Dose Admin Acetaminophen 650 mg 12/21/24 17:30 Acetaminophen 325 Mg Tablet PO Q6H PRN PRN Pain 1-10 Or Fever>100.7 Albuterol Sulfate 2.5 mg 12/21/24 17:39 12/22/24 07:04 Albuterol 2.5 Mg/3 Ml Vial.Neb. INHALATION 2.5 mg Q4H PRN Administration SOB &/OR WHEEZING Albuterol/Ipratropium 3 ml 12/21/24 17:30 12/21/24 19:15 Ipratropium/Albuterol Sulfate 3 Ml Ampul.Neb INHALATION 3 ml Q6HWA.RT DIGNA Administration Amlodipine Besylate 5 mg 12/22/24 10:00 Amlodipine 5 Mg Tablet PO DAILY DIGNA Protocol Budesonide 0.5 mg 12/21/24 17:45 12/22/24 07:04 Budesonide Respules 0.5 Mg/2 Ml Ampul.Neb. INHALATION 0.5 mg Q12H.RT DIGNA Administration Enoxaparin Sodium 40 mg 12/22/24 10:00 Enoxaparin 40 Mg/0.4 Ml Syringe SC DAILY DIGNA Guaifenesin 600 mg 12/21/24 18:09 Guaifenesin 600 Mg Tablet PO Q12H PRN COUGH/CONGESTION Vancomycin IV-PHARMACY TO DOSE 500 mls @ 250 mls/hr 12/21/24 17:30 1 each/ Sodium Chloride IV X1 PRN Rx to Dose Protocol Cefepime HCl 2 gm/ Sodium 100 mls @ 200 mls/hr 12/21/24 22:00 12/22/24 05:59 Chloride IV Infused Q8 DIGNA Infusion Sodium Chloride 100 mls @ 15 mls/hr 12/21/24 17:35 IV .Q6H40M PRN Saline Flush Sodium Chloride 100 mls @ 15 mls/hr 12/21/24 17:35 IV .Q6H40M PRN Additional IVPB Infusion Vancomycin HCl 750 mg/ Sodium 265 mls @ 250 mls/hr 12/22/24 07:00 12/22/24 07:36 Chloride IV Infused Q12H DIGNA Infusion Melatonin 3 mg 12/21/24 17:30 Melatonin 3 Mg Tablet PO QHS PRN PRN INSOMNIA Montelukast Sodium 10 mg 12/21/24 22:00 12/21/24 22:04 Montelukast 10 Mg Tablet PO 10 mg QHS DIGNA Administration Ondansetron HCl 4 mg 12/21/24 17:30 Ondansetron 4 Mg/2 Ml Vial IV Q8H PRN PRN NAUSEA/VOMITING Pantoprazole Sodium 40 mg 12/22/24 10:00 Pantoprazole Sodium 40 Mg Tablet PO DAILY DIGNA Sodium Chloride 10 - 40 ml 12/21/24 17:35 0.9% Saline Lock 10 Ml Syringe IV UD PRN SALINE FLUSH Tamsulosin HCl 0.4 mg 12/22/24 17:30 Tamsulosin Hcl 0.4 Mg Capsule PO DAILY@1730 [facility] Vancomycin Protocol 1 lab 12/23/24 04:30 Vancomycin Trough/Random Due MC 12/23/24 08:30 DAILY [facility] Lab / Micro Data 12/22/24 04:28 12/22/24 04:28 Labs: Laboratory Results - last 24 hr 12/21/24 14:40: WBC 12.2 H, RBC 4.15 L, Hgb 12.1 L, Hct 37.3 L, MCV 89.9, MCH 29.2, MCHC 32.4, RDW Std Deviation 46.7 H, RDW Coeff of Joyce 14.1, Plt Count 618 H, MPV 8.6, Immature Gran % (Auto) 0.400, Neut % (Auto) 80.8 H, Lymph % (Auto) 8.9 L, [place] % (Auto) 7.7, Eos % (Auto) 1.5, Baso % (Auto) 0.7, Absolute Neuts (auto) 9.9 H, Absolute Lymphs (auto) 1.09, Nucleated RBC % 0, Sodium 139, Potassium 4.3, Chloride 104, Carbon Dioxide 24.3, Anion Gap 11, BUN 18, Creatinine 0.90, Estim Creat Clear Calc 62.84, Est GFR (MDRD) Non-Af 90, BUN/Creatinine Ratio 19.8, Glucose 94, Calcium 9.5, Total Bilirubin 0.17, Direct Bilirubin 0.08, AST 11, ALT 6, Alkaline Phosphatase 77, Troponin T High Sens 19, Total Protein 7.0, Albumin 3.4, Globulin 3.6 12/22/24 04:28: WBC 4.0 L, RBC 3.83 L, Hgb 11.0 L, Hct 33.8 L, MCV 88.3, MCH 28.7, MCHC 32.5, RDW Std Deviation 46.4 H, RDW Coeff of Joyce 14.4, Plt Count 570 H, MPV 8.9, Sodium 138, Potassium 4.2, Chloride 104, Carbon Dioxide 23.8, Anion Gap 10, BUN 18, Creatinine 0.76, Estim Creat Clear Calc 69.44, Est GFR (MDRD) Non-Af 94, BUN/Creatinine Ratio 24.0 H, Glucose 159 H, Calcium 9.2 Imaging Radiology Impression Chest X-Ray 12/21/24 15:13 IMPRESSION: 1. Emphysema with considerable patchy opacities on the RIGHT which may reflect pneumonia however there is suggestion of a 3.1 cm cavitary lesion in this region, not well delineated. Recommend CT, ideally with IV contrast. 2. Suspected trace to small RIGHT pleural effusion. 3. Additional description as above. Reading Location: [facility] Chest CTA 12/21/24 15:40 IMPRESSION: 1. No pulmonary embolism. 2. COPD with right pleural effusion and scattered areas of partial consolidation, likely pneumonia. Underlying mass can not be entirely excluded. This is new since the prior exam. Repeat CT in 3 months is recommended. Reading Location: [facility] Assessment and Plan . Assessment and plan: Physical Exam: Gen - NAD, thin HEENT - MMM. Sclera anicteric Resp - Diminished BS, few crackles. Breathing nonlabored CV - RRR. No m/g/r Abd - Soft, NT, ND Ext - No c/c/e. Skin - No rashes? Neuro - Grossly nonfocal. Alert and oriented I have reviewed the pertinent vital sign, laboratory, and imaging data. ASSESSMENT: # Acute on chronic hypoxic respiratory failure - previously on home O2 several yrs ago but lost this d/t insurance lapse # PNA - typical viral/bacterial organisms may be contributory; however given chronicity of sx/constitutional sx, need to consider other processes such as malignancy and more indolent infectious etiologies (e.g. 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 Encourage IS, mobilization as tolerated -Cont empiric vanc/cefepime/azithro. f/u Cx, procal, MRSA nares. Viral PCR neg -Obtain sputum AFB/fungal, quantiferon (though low suspicion for TB), fungitell, fungal serologies, cursory CTD serologies -Add mucinex, flutter valve -Would discuss with IR if sufficient pocket for R thoracentesis; if feasible to perform would send fluid for usual studies, cultures, cytology -No urgent need for bronchoscopy at this time and can await initial workup as above. No in-house quote clerk currently for this procedure anyways. Pt also eager to go home as soon as possible. If continues to improve over next few days may be able to be discharged with close outpatient pulmonary clinic f/u within the next couple of weeks; at that time above workup can be reviewed and bronchoscopy can be considered then if needed -CTA chest negative for PE. No significant lymphadenopathy noted as well -Budesonide, duonebs. Can hold off on systemic steroids for now but can consider if worsening FEN/GI: PO diet Proph DVT/GI: Lovenox, protonix Code status: DNR Updated family at bedside. Discussed plan with hospitalist as well The entirety of this encounter was done via telemedicine using both audio and video. Consent was obtained.
[2024-12-22] MEDS: Pantoprazole Sodium 40 MG Tablet PO (09:42)
[2024-12-22] MEDS: Enoxaparin 40 MG/0.4 ML Syringe SC (09:43)
[2024-12-22] MEDS: amLODIPine 5 MG Tablet PO (09:43)
--- NOTE | 2024-12-22 10:34 | US_ITS ---
PROCEDURE: CHEST REASON FOR EXAM: RIGHT PLEURAL EFFUSION , PNEUMOIC/MASS, NEOPLASM PROCEDURE: Imaging of the right pleural space was performed by ultrasound. Not enough fluid present for safe thoracentesis. US/Chest IMPRESSION: Not enough fluid for safe thoracentesis. Reading Location: [place] [id number]
--- NOTE | 2024-12-22 11:30 | CASEMGMT ---
Addendum entered by Paula Hu 12/22/24 16:24: RN CM informed that shower chairs are not covered under pt's insurance. RN CM to room and pt was made aware. Pt also provided w/private duty HH agency list. Pt stated his daughter had questions for RN CM and put this RN CM on the phone w/her. Questions answered. She was updated pt wants [facility] HHC @ dc, that he wants [facility] for O2 @ dc and also discussed if pt is dc'd over the weekend they do not do new home o2 set up on the weekends and made aware of DME co's that do O2 on W/E's. She was made aware pt chooses [facility] for any dc meds but if pt dc's over the weekend will need to choose a different pharmacy so he can get his medications same-day. Also made aware it is recommended pt get a pulse ox @ home and these are not covered by insurance, in addition to shower chairs not being covered. She states will look into purchasing both of these. She denies having further questions at this time. Original Note: RN CM DAMPER WORKER CM?to room to meet with patient for initial transition planning/care coordination assessment. RN CM?introduced self and role at [facility]. Pt voices understanding and consents to assessment?at this time. Pt resting in bed in no distress at this time. Pt is A/O at this time and answers all questions appropriately. Care providers, pharmacy, and demographics verified/updated at this time. Strata:?1 PCP: Hermes Castellon NP Specialists: Pt was going to [place] [employer], Dr Hahn and Jazmyn Judge NP. Pt then went to see Dr Zamudio for a 2nd opinion, but did not go back again. He states is planning on going back to [place] again. Preferred Pharmacy: [facility], stating he is signed up for a program there and gets his medications free. He states he is pretty sure they deliver to his home in [place] on Wed's, Thurs's, and Fri's. Insurance:[employer] [facility] Prescription Benefit: yes LNOK: daughter, Jessica Living Arrangements: Lives alone in 2-story home w/1-3 steps to enter. FFSU. Indep w/ADL's. Pt states he is having difficulty w/doing home mgnt tasks. Daughter has been getting groceries since Nov and she helps w/some cleaning, but she works 2 jobs and does not have a lot of extra time to assist pt. Transportation:?Pt states drives self and states no transportation concerns at this time. Dtr will take him home @ dc. DME:States has the following DME: cane and nebulizer. He used to have oxygen through both [employer] and [employer] but states and feels he got screwed over w/billing and does not want to use those companies again. If he needs O2 @ discharge, he would like to use the company that is located in [place]. He does not have a pulse ox, stating he used to have 2 of them but they no longer work. MICAELA HENSLEY recommended he get another one and made aware insurance does not cover for this. He is interested in getting a shower chair. Pt states no need for further DME at this time. HHC/SNF: No hx of either. Discussed discharge planning. Pt would like to discharge home and is interested in HHC. [facility] is his 1st choice and he declines wanting list unless [facility] unable to accept him. Dtr was in the room when MICAELA HENSLEY initially started assessment and states they are interested in AL info and also assistance w/home mgnt/cleaning. Pt and dtr made aware pt's insurance does not cover for [employer] for cleaning/home mgnt, but can provide info re: [facility]. Also pt to be provided w/private-duty HH agency list. Pt wishes to return home and states has no further concerns with going home at time of discharge. CM?to follow for home oxygen needs and any further discharge planning/needs. Pt voices no further concerns/needs at this time. Advised pt to ask for CM?if any further questions/concerns/needs arise. Voices understanding. PLAN: Home w/HHC. Follow for possible home o2 and shower chair. Pt to be given private-duty HH agency list. SW to provide resources on AL and [facility]. Vicente MAXWELL RN, CM
[2024-12-22] MEDS: guaiFENesin 600 MG Tablet PO ×2 (11:39→21:25)
[2024-12-22 11:43] LABS: Erythrocyte Sedimentation Rate 44 mm/hr (0-20)
[2024-12-22 12:03] LABS: Phosphorus 3.7 mg/dL (2.7-4.5)
[2024-12-22 12:10] LABS: Procalcitonin 0.06 ng/mL (<=0.10)
[2024-12-22 12:22] LABS: Magnesium 1.8 mg/dL (1.5-2.2)
--- NOTE | 2024-12-22 15:59 | CASEMGMT ---
Insurance review [facility] hospitals [facility] is as follows: [facility], [facility], [facility], [facility], [facility], [facility], , [facility], [facility], and [facility]. Narda Baca, Discharge Planning Asst.
[2024-12-22] MEDS: Tamsulosin HCl 0.4 MG Capsule PO (18:10)
[2024-12-22] MEDS: Ipratropium/Albuterol Sulfate 3 ML AMPUL.NEB INHALATION (19:20)
[2024-12-22 19:32] LABS: LDH 139 U/L (87-241)
[2024-12-22 21:04] LABS: Protein, Total 6.6 g/dL (5.9-8.4)
[2024-12-22] MEDS: Montelukast 10 MG Tablet PO (21:25)
[2024-12-23 03:18] VITALS: BP 120/62; PULSE 80; RESP 20; TEMP 36.6; O2SAT 92
[2024-12-23] MEDS: Cefepime HCl 2 GM in 0.9% Normal Saline (100mL MB+) 100 ML IV ×3 (05:16→21:22)
[2024-12-23 06:53] LABS: Absolute Neutrophil Count 8.7 X10^3/uL (2.0-7.7); Basophil# 0.08 X10^3/uL; Basophil% 0.7 % (0-1); Eosinophils% 1.7 % (0-5); Hematocrit 33.5 % (40-54); Lymphocyte % 13.7 % (19-41); Mean Corp Hgb Conc 32.8 g/dL (32-36); Mean Corpuscular Hgb 29.3 pg (27.0-32.0); Mean Corpuscular Volume 89.3 fL (80-94); Mean Platelet Vol. 8.7 fl (6.2-12.0); Monocyte# 1.15 X10^3/uL; Monocyte% 9.8 % (0-10); NRBC Flagged by Analyzer 0 % (0-5); Neutrophil # 8.66 X10^3/uL (2.7-7.7); Neutrophil % 73.8 % (47-70); Platelet Count 542 K/mm3 (150-450); RBC Distribution Width CV 14.5 % (11.6-14.6); RBC Distribution Width SD 47.3 fl (35.1-43.9); Red Blood Count 3.75 M/mm3 (4.6-6.2); White Blood Count 11.7 K/mm3 (4.4-11.0)
[2024-12-23 07:22] LABS: Anion Gap 11 (5-15); BUN 20 mg/dL (4-19); BUN/Creat Ratio 26.7 RATIO (10-20); Chloride 105 mmol/L (98-108); Creatinine, Serum 0.76 mg/dL (0.70-1.20); EST Glomerular Filtration Rate 94 (>60); Estimated Creatinine Clearance 69.44 ml/min (50-250); Glucose 98 mg/dL (70-99); Potassium 4.2 mmol/L (3.3-5.1); Sodium Level 141 mmol/L (133-145)
[2024-12-23] MEDS: Budesonide Respules 0.5 MG/2 ML AMPUL.NEB. INHALATION ×2 (07:42→19:15)
[2024-12-23 07:43] VITALS: PULSE 88; RESP 20; O2SAT 93
[2024-12-23] MEDS: Ipratropium/Albuterol Sulfate 3 ML AMPUL.NEB INHALATION ×2 (07:43→19:15)
--- NOTE | 2024-12-23 07:58 | PCM.PN.HOSP ---
Reason for Visit Reason for Visit: Diagnoses Pneumonia, unspecified organism (12/21/24) Chronic respiratory failure with hypoxia (12/21/24) Abnormal weight loss (12/21/24) Objective Data Objective Data Vital Signs: Vital Signs Temp Pulse Resp BP Pulse Ox O2 Del Method O2 Flow Rate 97.9 F 80 20 H 120/62 92 Nasal Cannula 2 12/23/24 03:18 12/23/24 03:18 12/23/24 03:18 12/23/24 03:18 12/23/24 03:18 12/23/24 03:18 12/23/24 03:18 Oxygen Flow Rate (L/min) 2 Oxygen Delivery Method Nasal Cannula Weight: 133 lb 9.602 oz Body Mass Index (BMI) 18.6 Intake & Output: Intake and Output for Last 24 Hours 12/21/24 12/22/24 12/23/24 23:59 23:59 23:59 Intake Total 935.00 / 935.00 1070 / 1070 100 / 100 Output Total 225 / 225 Balance 935.00 / 935.00 845 / 845 100 / 100 Lab / Micro Data 12/23/24 06:24 12/23/24 06:24 Labs: Laboratory Results - last 24 hr 12/22/24 04:28: Lactate Dehydrogenase 139, Total Protein 6.6 12/22/24 11:23: ESR 44 H, Phosphorus 3.7, Magnesium 1.8, C-React Prot Ext Range 53.90 H, Procalcitonin 0.06, Rheumatoid Factor 325.0 H, CARMEN-1 Antibody TNP, SS-A/Ro IgG Antibody TNP, SS-B/La IgG Antibody TNP, Sm (Mckinley) Antibody TNP, SHEET ROCK TAPER HELPER Antibody TNP, Antichromatin Antibodies TNP, Centromere B Antibody TNP 12/23/24 06:24: WBC 11.7 H, RBC 3.75 L, Hgb 11.0 L, Hct 33.5 L, MCV 89.3, MCH 29.3, MCHC 32.8, RDW Std Deviation 47.3 H, RDW Coeff of Joyce 14.5, Plt Count 542 H, MPV 8.7, Immature Gran % (Auto) 0.300, Neut % (Auto) 73.8 H, Lymph % (Auto) 13.7 L, Gage % (Auto) 9.8, Eos % (Auto) 1.7, Baso % (Auto) 0.7, Absolute Neuts (auto) 8.7 H, Absolute Lymphs (auto) 1.60, Nucleated RBC % 0, Sodium 141, Potassium 4.2, Chloride 105, Carbon Dioxide 24.0, Anion Gap 11, BUN 20 H, Creatinine 0.76, Estim Creat Clear Calc 69.44, Est GFR (MDRD) Non-Af 94, BUN/Creatinine Ratio 26.7 H, Glucose 98, Calcium 9.0, Vancomycin Trough 12.0 Micro: Microbiology 12/22/24 08:29 Mucosa - Nose Respiratory Panel (PCR) - Final 12/22/24 07:59 Mucosa - Nasopharyngeal Coronavirus COVID-19 PCR - Final Radiography Diagnostic Testing: Radiology Impression Chest Ultrasound 12/22/24 10:34 IMPRESSION: Not enough fluid for safe thoracentesis. Reading Location: [place] [address] Physical Exam Narrative Seen and examined. Shortness of breath is better. Patient asking for discharge. Advised to stay. Ultrasound shows small pleural effusion not safe for thoracocentesis He was admitted with with symptoms of shortness of breath, on and off cough with greenish-yellow sputum and dyspnea ongoing since July 2024. Physical exam General: Alert, Oriented x3, Cooperative HEENT: Hard of hearing. Atraumatic, PERRLA, EOMI, Normocephalic Oral: Oral mucosa dry no Gingival or Mucosal Lesions/ Ulcerations Neck: Supple, No JVD, Negative Carotid Bruits Chest wall/Lungs: Air entry diminished in bilateral lung bases. Mild coarse crepitation in lung bases. Cardiovascular: Regular rate, Regular Rhythm, Normal S1, Normal S2, No M/G/R Abdomen: Bowel Sounds Present, Soft, Non Tender, Non-Distended : No dysuria. No renal angle tenderness. No suprapubic tenderness. Extremities: No edema, Capillary Refill Less than 3 Seconds Skin: No rashes, No breakdown Musculoskeletal: No Tenderness to Palpation of Joints or Extremities. ROM restricted Neurological: Cranial nerves II-XII grossly intact, DTR 2+/4. No acute focal neurological deficit. Psych/Mental Status: Flat affect Assessment & Plan Assessment/Plan (1) Pneumonia: (2) Chronic respiratory failure with hypoxia: (3) Weight loss: PLAN: Plan Patient is a 74-year-old male who presented to [facility] ED on 12/21/2024 with worsening shortness of breath and weight loss. 1. Right lower lobe consolidation with right pleural effusion with suspicion of neoplasm and postobstructive pneumonia. Patient is being admitted in PCU. CTA chest immediately reviewed and shows no pulmonary embolism. Right lower lobe shows scattered areas of partial consolidation likely pneumonia and underlying mass. There is new since prior exam of CT low-dose screening in August 2021 There is no pulmonary service available in person in the hospital for bronchoscopy. Tele PCC was consulted and I discussed with Dr. Carlos and he said no urgent need for bronchoscopy. He ordered noninvasive test for pneumonia including fungal and advised ultrasound guided diagnostic thoracocentesis for culture and fluid cytology. Patient on IV IV vancomycin and Zosyn 12/23: Patient on 2 L of oxygen. Ultrasound chest does not show enough fluid for safe thoracocentesis. Continue treatment for COPD. Sputum culture pending. MRSA PCR respiratory panel are negative. COVID PCR negative 2. 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 Previously followed with outpatient pulmonology. Was previously on 2 L nasal cannula at home but self discontinued oxygen due to cost. Does not seem to be in acute COPD exacerbation therefore hold steroid. Continue DuoNeb 3. Moderate protein calorie malnutrition: Patient lost 35 pounds since August 2024 4. He said he was 150 pound in 2017 and then again weight and was 176 in 2017 after quitting smoking. He was 150 pound about August 29. This raises the concern for cancer. This was explained to patient's daughter at the bedside. BMI 18.6 kg/m? ? Nutrition consulted. 4. Acute debility ? PT/OT/case management consulted. Patient lives at home alone and reports worsening weakness in setting of suspected cancer. Appreciate therapy recommendations. Chronic medical conditions: ? Hypertension: Continue home amlodipine. Will hold chlorthalidone and lisinopril for now, restart as needed. ? GERD: Continue home PPI. ? BPH with obstructive symptoms: Continue home Flomax. ? Former tobacco use: 40 pack years smoking. Quit smoking 2017 encouraged continued cessation. DVT prophylaxis: Lovenox CODE STATUS: DNR CCA, DNI Expected disposition: Home, 2 to 3 days Clinical Impression(s) from Imaging Studies Chest X-Ray 12/21/24 15:13 IMPRESSION: 1. Emphysema with considerable patchy opacities on the RIGHT which may reflect pneumonia however there is suggestion of a 3.1 cm cavitary lesion in this region, not well delineated. Recommend CT, ideally with IV contrast. 2. Suspected trace to small RIGHT pleural effusion. 3. Additional description as above. Reading Location: [facility] Chest CTA 12/21/24 15:40 IMPRESSION: 1. No pulmonary embolism. 2. COPD with right pleural effusion and scattered areas of partial consolidation, likely pneumonia. Underlying mass can not be entirely excluded. This is new since the prior exam. Repeat CT in 3 months is recommended. Reading Location: [facility] Laboratory Results 12/21/24 14:40: WBC 12.2 H, RBC 4.15 L, Hgb 12.1 L, Hct 37.3 L, MCV 89.9, MCH 29.2, MCHC 32.4, RDW Std Deviation 46.7 H, RDW Coeff of Joyce 14.1, Plt Count 618 H, MPV 8.6, Immature Gran % (Auto) 0.400, Neut % (Auto) 80.8 H, Lymph % (Auto) 8.9 L, Gage % (Auto) 7.7, Eos % (Auto) 1.5, Baso % (Auto) 0.7, Absolute Neuts (auto) 9.9 H, Absolute Lymphs (auto) 1.09, Nucleated RBC % 0, Sodium 139, Potassium 4.3, Chloride 104, Carbon Dioxide 24.3, Anion Gap 11, BUN 18, Creatinine 0.90, Estim Creat Clear Calc 62.84, Est GFR (MDRD) Non-Af 90, BUN/Creatinine Ratio 19.8, Glucose 94, Calcium 9.5, Total Bilirubin 0.17, Direct Bilirubin 0.08, AST 11, ALT 6, Alkaline Phosphatase 77, Troponin T High Sens 19, Total Protein 7.0, Albumin 3.4, Globulin 3.6 12/22/24 04:28: WBC 4.0 L, RBC 3.83 L, Hgb 11.0 L, Hct 33.8 L, MCV 88.3, MCH 28.7, MCHC 32.5, RDW Std Deviation 46.4 H, RDW Coeff of Joyce 14.4, Plt Count 570 H, MPV 8.9, Sodium 138, Potassium 4.2, Chloride 104, Carbon Dioxide 23.8, Anion Gap 10, BUN 18, Creatinine 0.76, Estim Creat Clear Calc 69.44, Est GFR (MDRD) Non-Af 94, BUN/Creatinine Ratio 24.0 H, Glucose 159 H, Calcium 9.2 Charges/Coding Visit Charges Inpatient E&M: 86802 Subs Hosp L2
--- NOTE | 2024-12-23 08:00 | PCM.RX.CS ---
Consult Antibiotic Management Pharmacy has been consulted to manage selected antibiotic: Vancomycin Type of Intervention Type of Consult: Follow-up Suspected Infection Suspected Infection: Pneumonia Prior Doses of Antibiotics Prior Doses of Antibiotics Received/Current Regimen: 12/22/24 @ 0611 750MG Labs Labs: Sodium 141 mmol/L (133-145) 12/23/24 06:24 Potassium 4.2 mmol/L (3.3-5.1) 12/23/24 06:24 Chloride 105 mmol/L (98-108) 12/23/24 06:24 Carbon Dioxide 24.0 mmol/L (21.0-32.0) 12/23/24 06:24 Anion Gap 11 (5-15) 12/23/24 06:24 BUN 20 mg/dL (4-19) H 12/23/24 06:24 Creatinine 0.76 mg/dL (0.70-1.20) 12/23/24 06:24 Est GFR (MDRD) Non-Af 94 (>60) 12/23/24 06:24 BUN/Creatinine Ratio 26.7 RATIO (10-20) H 12/23/24 06:24 Glucose 98 mg/dL (70-99) 12/23/24 06:24 Vancomycin Trough 12.0 ug/mL (5.0-15.0) 12/23/24 06:24 Microbiology Microbiology: Microbiology 12/22/24 08:29 Mucosa - Nose Respiratory Panel (PCR) - Final 12/22/24 07:59 Mucosa - Nasopharyngeal Coronavirus COVID-19 PCR - Final Pharmacy Plan for Drug Dosing Pharmacy Plan for Drug Dosing: Pharmacy Service will continue to monitor and adjust dosing as required.
[2024-12-23 08:14] VITALS: BP 135/99; PULSE 74; RESP 18; TEMP 36.5; O2SAT 93
[2024-12-23] MEDS: Pantoprazole Sodium 40 MG Tablet PO (08:17)
[2024-12-23] MEDS: guaiFENesin 600 MG Tablet PO ×2 (08:17→21:27)
[2024-12-23] MEDS: amLODIPine 5 MG Tablet PO (08:17)
[2024-12-23] MEDS: Enoxaparin 40 MG/0.4 ML Syringe SC (08:17)
[2024-12-23] MEDS: Vancomycin IV 1,000 MG/200 ML BAG 200 MG IV ×2 (08:18→19:59)
--- NOTE | 2024-12-23 08:45 | PCM.RX.CS ---
Consult Antibiotic Management Pharmacy has been consulted to manage selected antibiotic: Vancomycin Type of Intervention Type of Consult: Follow-up Suspected Infection Suspected Infection: Pneumonia Prior Doses of Antibiotics Prior Doses of Antibiotics Received/Current Regimen: 12/22/24 @ 0611 750MG 12/22/24 @ 1810 750MG Labs Labs: Sodium 141 mmol/L (133-145) 12/23/24 06:24 Potassium 4.2 mmol/L (3.3-5.1) 12/23/24 06:24 Chloride 105 mmol/L (98-108) 12/23/24 06:24 Carbon Dioxide 24.0 mmol/L (21.0-32.0) 12/23/24 06:24 Anion Gap 11 (5-15) 12/23/24 06:24 BUN 20 mg/dL (4-19) H 12/23/24 06:24 Creatinine 0.76 mg/dL (0.70-1.20) 12/23/24 06:24 Est GFR (MDRD) Non-Af 94 (>60) 12/23/24 06:24 BUN/Creatinine Ratio 26.7 RATIO (10-20) H 12/23/24 06:24 Glucose 98 mg/dL (70-99) 12/23/24 06:24 Vancomycin Trough 12.0 ug/mL (5.0-15.0) 12/23/24 06:24 Microbiology Microbiology: Microbiology 12/22/24 08:29 Mucosa - Nose Respiratory Panel (PCR) - Final 12/22/24 07:59 Mucosa - Nasopharyngeal Coronavirus COVID-19 PCR - Final Dosing Weight Weight used for dosin kg Estimated Creatinine Clearance Estimated Creatinine Clearance: 69 Goal Trough Goal Trough: 15-20 mcg/mL Pharmacy Plan for Drug Dosing Pharmacy Plan for Drug Dosing: Increase Vancomycin to 1000mg every 12 hours due to trough being 12 today Pharmacy Service will continue to monitor and adjust dosing as required. Follow-Up Labs Follow-Up Labs: Trough: Vancomycin Date/Time Labs Ordered Labs to be done on [date and time ordered]: 12/24/24 @ 1930
--- NOTE | 2024-12-23 10:41 | PN.CC_ITS ---
Objective Data Objective Data Vital Signs: Vital Signs Last response 3 Temperature 36.5 C L 12/23/24 08:14 Temperature Source Oral 12/23/24 08:14 Pulse Rate 74 12/23/24 08:14 Pulse Strength Normal (2+) 12/23/24 09:42 Respiratory Rate 18 12/23/24 08:14 Respiratory Effort Non-Labored, Short of Breath 12/23/24 09:42 Respiratory Depth Normal 12/23/24 09:42 Respiratory Pattern Normal 12/23/24 09:42 Blood Pressure 135/99 H 12/23/24 08:14 Blood Pressure Mean 111 12/23/24 08:14 Blood Pressure Source Monitor 12/23/24 08:14 Blood Pressure Position Semi-Fowlers 12/23/24 08:14 Blood Pressure Location Right Arm 12/23/24 08:14 Pulse Ox 93 12/23/24 08:14 Oxygen Delivery Method Nasal Cannula 12/23/24 09:42 Oxygen Flow Rate (L/min) 2 12/23/24 09:42 I&O: I&O Last 24 Hours 3 12/22/24 12/22/24 12/23/24 11:59 23:59 11:59 Intake Total 365 / 1070 705 / 1070 300 / 300 Output Total 225 / 225 Balance 365 / 845 480 / 845 300 / 300 I&O: Total Stay 3 12/21/24 13:45 thru 12/23/24 09:24 Intake Total 2305.00 Output Total 225 Balance 2080.00 Current Meds Ordered / Administered: Current meds ordered / Administered 3 Generic Name Dose Route Start Last Admin Trade Name Rey PRN Reason Stop Dose Admin Acetaminophen 650 mg 12/21/24 17:30 Acetaminophen 325 Mg Tablet PO Q6H PRN PRN Pain 1-10 Or Fever>100.7 Albuterol Sulfate 2.5 mg 12/21/24 17:39 12/22/24 07:04 Albuterol 2.5 Mg/3 Ml Vial.Neb. INHALATION 2.5 mg Q4H PRN Administration SOB &/OR WHEEZING Albuterol/Ipratropium 3 ml 12/21/24 17:30 12/23/24 07:43 Ipratropium/Albuterol Sulfate 3 Ml Ampul.Neb INHALATION 3 ml Q6HWA.RT DIGNA Administration Amlodipine Besylate 5 mg 12/22/24 10:00 12/23/24 08:17 Amlodipine 5 Mg Tablet PO 5 mg DAILY DIGNA Administration Protocol Budesonide 0.5 mg 12/21/24 17:45 12/23/24 07:42 Budesonide Respules 0.5 Mg/2 Ml Ampul.Neb. INHALATION 0.5 mg Q12H.RT DIGNA Administration Enoxaparin Sodium 40 mg 12/22/24 10:00 12/23/24 08:17 Enoxaparin 40 Mg/0.4 Ml Syringe SC 40 mg DAILY DIGNA Administration Guaifenesin 600 mg 12/21/24 18:09 Guaifenesin 600 Mg Tablet PO Q12H PRN COUGH/CONGESTION Guaifenesin 600 mg 12/22/24 10:35 12/23/24 08:17 Guaifenesin 600 Mg Tablet PO 600 mg BID DIGNA Administration Vancomycin IV-PHARMACY TO DOSE 500 mls @ 250 mls/hr 12/21/24 17:30 1 each/ Sodium Chloride IV X1 PRN Rx to Dose Protocol Cefepime HCl 2 gm/ Sodium 100 mls @ 200 mls/hr 12/21/24 22:00 12/23/24 05:46 Chloride IV Infused Q8 DIGNA Infusion Sodium Chloride 100 mls @ 15 mls/hr 12/21/24 17:35 IV .Q6H40M PRN Saline Flush Sodium Chloride 100 mls @ 15 mls/hr 12/21/24 17:35 IV .Q6H40M PRN Additional IVPB Infusion Vancomycin HCl 1,000 mg in 200 mls @ 200 mls/hr 12/23/24 08:00 12/23/24 09:24 Vancomycin IV Infused Q12H DIGNA Infusion Melatonin 3 mg 12/21/24 17:30 Melatonin 3 Mg Tablet PO QHS PRN PRN INSOMNIA Montelukast Sodium 10 mg 12/21/24 22:00 12/22/24 21:25 Montelukast 10 Mg Tablet PO 10 mg QHS DIGNA Administration Ondansetron HCl 4 mg 12/21/24 17:30 Ondansetron 4 Mg/2 Ml Vial IV Q8H PRN PRN NAUSEA/VOMITING Pantoprazole Sodium 40 mg 12/22/24 10:00 12/23/24 08:17 Pantoprazole Sodium 40 Mg Tablet PO 40 mg DAILY DIGNA Administration Sodium Chloride 10 - 40 ml 12/21/24 17:35 0.9% Saline Lock 10 Ml Syringe IV UD PRN SALINE FLUSH Tamsulosin HCl 0.4 mg 12/22/24 17:30 12/22/24 18:10 Tamsulosin Hcl 0.4 Mg Capsule PO 0.4 mg DAILY@1730 [facility] Administration Vancomycin Protocol 1 lab 12/24/24 18:30 Vancomycin Trough/Random Due MC 12/24/24 21:30 DAILY [facility] Lab / Micro Data 12/23/24 06:24 12/23/24 06:24 Labs: Laboratory Results - last 24 hr 12/22/24 04:28: Lactate Dehydrogenase 139, Total Protein 6.6 12/22/24 11:23: ESR 44 H, Phosphorus 3.7, Magnesium 1.8, C-React Prot Ext Range 53.90 H, Procalcitonin 0.06, Rheumatoid Factor 325.0 H, CARMEN-1 Antibody TNP, SS- A/Ro IgG Antibody TNP, SS-B/La IgG Antibody TNP, Sm (Mckinley) Antibody TNP, INSURANCE EXAMINING CLERK Antibody TNP, Antichromatin Antibodies TNP, Centromere B Antibody TNP 12/23/24 06:24: WBC 11.7 H, RBC 3.75 L, Hgb 11.0 L, Hct 33.5 L, MCV 89.3, MCH 29.3, MCHC 32.8, RDW Std Deviation 47.3 H, RDW Coeff of Joyce 14.5, Plt Count 542 H, MPV 8.7, Immature Gran % (Auto) 0.300, Neut % (Auto) 73.8 H, Lymph % (Auto) 13.7 L, King % (Auto) 9.8, Eos % (Auto) 1.7, Baso % (Auto) 0.7, Absolute Neuts (auto) 8.7 H, Absolute Lymphs (auto) 1.60, Nucleated RBC % 0, Sodium 141, Potassium 4.2, Chloride 105, Carbon Dioxide 24.0, Anion Gap 11, BUN 20 H, Creatinine 0.76, Estim Creat Clear Calc 69.44, Est GFR (MDRD) Non-Af 94, B UN/Creatinine Ratio 26.7 H, Glucose 98, Calcium 9.0, Vancomycin Trough 12.0 Micro: Microbiology 12/22/24 08:45 Nasal Secretion MRSA (PCR) - Final 12/22/24 08:29 Mucosa - Nose Respiratory Panel (PCR) - Final 12/22/24 07:59 Mucosa - Nasopharyngeal Coronavirus COVID-19 PCR - Final Imaging Radiology Impression Chest Ultrasound 12/22/24 10:34 IMPRESSION: Not enough fluid for safe thoracentesis. Reading [facility] Assessment and Plan . Assessment and plan: Subjective: No acute events o/n. Feels breathing slowly improving Physical Exam: Gen - NAD, thin HEENT - MMM. Sclera anicteric Resp - Diminished BS, few crackles. Breathing nonlabored CV - RRR. No m/g/r Abd - Soft, NT, ND Ext - No c/c/e. Skin - No rashes? Neuro - Grossly nonfocal. Alert and oriented I have reviewed the pertinent vital sign, laboratory, and imaging data. ASSESSMENT: # Acute on chronic hypoxic respiratory failure - previously on home O2 several yrs ago but lost this d/t insurance lapse # PNA - typical viral/bacterial organisms may be contributory; however given chronicity of sx/constitutional sx, need to consider other processes such as malignancy and more indolent infectious etiologies (e.g. 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 Encourage IS, mobilization as tolerated. PT eval. Will need home O2 eval -Cont empiric vanc/cefepime/azithro. f/u Cx. Procal low, MRSA neg. Viral PCR neg -Obtain sputum AFB/fungal, quantiferon, fungitell, fungal serologies, cursory CTD serologies -Added mucinex, give flutter valve -Budesonide, duonebs. Consider systemic steroids if worsening -Would discuss with IR if sufficient pocket for R thoracentesis; if feasible to perform would send fluid for usual studies, cultures, cytology -No urgent need for bronchoscopy at this time and can await initial workup as above. No in-house principal technical architect available currently for this procedure anyways. Pt also eager to go home as soon as possible. If continues to improve may be able to be discharged with close outpatient pulmonary clinic f/u within the next 1-3 weeks; at that time above workup can be reviewed and bronchoscopy can be considered -CTA chest negative for PE. No significant lymphadenopathy noted as well FEN/GI: PO diet Proph DVT/GI: Lovenox, protonix Code status: DNR May be able to discharge home in next 1-2 days pending clinical improvement/PT eval and initial culture results The entirety of this encounter was done via telemedicine using both audio and video. Consent was obtained.
[2024-12-23 14:03] VITALS: BP 122/71; PULSE 79; RESP 20; TEMP 36.4; O2SAT 94
[2024-12-23] MEDS: ALPRAZolam 0.25 MG Tablet PO (14:51)
[2024-12-23] MEDS: Tamsulosin HCl 0.4 MG Capsule PO (18:18)
[2024-12-23 19:15] VITALS: PULSE 85; RESP 20; O2SAT 94
[2024-12-23] MEDS: 0.9% Saline Lock 10 ML Syringe IV (20:01)
[2024-12-23 21:21] VITALS: BP 116/71; PULSE 68; RESP 20; TEMP 36.5; O2SAT 92
[2024-12-23] MEDS: Montelukast 10 MG Tablet PO (21:27)
[2024-12-24] VITALS (11 sets, daily range): BP systolic 110–136; BP diastolic 60–75; PULSE 76–99; RESP 18–22; TEMP 36.4–36.7; O2SAT 2–124
[2024-12-24 06:02] LABS: Absolute Lymphocyte Count 1.36 X10^3/uL (0.83-4.51); Absolute Neutrophil Count 6.9 X10^3/uL (2.0-7.7); Eosinophil# 0.49 X10^3/uL; Hematocrit 33.2 % (40-54); Hemoglobin 10.9 g/dL (13.0-16.5); Lymphocyte # 1.36 X10^3/ul (0.83-4.51); Lymphocyte % 13.9 % (19-41); Mean Corp Hgb Conc 32.8 g/dL (32-36); Mean Corpuscular Hgb 29.1 pg (27.0-32.0); Mean Corpuscular Volume 88.5 fL (80-94); Mean Platelet Vol. 8.7 fl (6.2-12.0); Monocyte# 0.93 X10^3/uL; Monocyte% 9.5 % (0-10); NRBC Flagged by Analyzer 0 % (0-5); Neutrophil # 6.88 X10^3/uL (2.7-7.7); Neutrophil % 70.2 % (47-70); Platelet Count 545 K/mm3 (150-450); RBC Distribution Width CV 14.2 % (11.6-14.6); Red Blood Count 3.75 M/mm3 (4.6-6.2); White Blood Count 9.8 K/mm3 (4.4-11.0)
[2024-12-24] MEDS: Cefepime HCl 2 GM in 0.9% Normal Saline (100mL MB+) 100 ML IV ×3 (06:06→22:47)
[2024-12-24 06:31] LABS: Anion Gap 17 (5-15); BUN 16 mg/dL (4-19); BUN/Creat Ratio 26.1 RATIO (10-20); Carbon Dioxide 23.1 mmol/L (21.0-32.0); Chloride 102 mmol/L (98-108); Creatinine, Serum 0.63 mg/dL (0.70-1.20); EST Glomerular Filtration Rate 100 (>60); Estimated Creatinine Clearance 69.44 ml/min (50-250); Glucose 97 mg/dL (70-99); Potassium 3.9 mmol/L (3.3-5.1); Sodium Level 142 mmol/L (133-145)
[2024-12-24] MEDS: Budesonide Respules 0.5 MG/2 ML AMPUL.NEB. INHALATION (06:53)
[2024-12-24] MEDS: Ipratropium/Albuterol Sulfate 3 ML AMPUL.NEB INHALATION ×3 (06:53→21:20)
[2024-12-24] MEDS: Enoxaparin 40 MG/0.4 ML Syringe SC (08:20)
[2024-12-24] MEDS: guaiFENesin 600 MG Tablet PO ×2 (08:20→22:32)
[2024-12-24] MEDS: Pantoprazole Sodium 40 MG Tablet PO (08:20)
[2024-12-24] MEDS: amLODIPine 5 MG Tablet PO (08:20)
[2024-12-24] MEDS: Vancomycin IV 1,000 MG/200 ML BAG 200 MG IV (08:20)
--- NOTE | 2024-12-24 10:04 | CASEMGMT ---
Per RN SHELLIE patient and his daughter were interested in information on assisted living and [facility]. FELIPE met with patient. Introduced self and role at [facility]. SW provided patient with this information and explained [facility]. Patient thanked FELIPE for the information. Miroslava FLORES
--- NOTE | 2024-12-24 10:36 | PN.CC_ITS ---
Objective Data Objective Data Vital Signs: Vital Signs Last response 3 Temperature 36.4 C L 12/24/24 08:18 Temperature Source Oral 12/24/24 08:18 Pulse Rate 76 12/24/24 08:18 Pulse Strength Normal (2+) 12/24/24 09:43 Respiratory Rate 18 12/24/24 08:18 Respiratory Effort Normal, Non-Labored, Short of Breath 12/24/24 02:09 Respiratory Depth Normal 12/23/24 22:00 Respiratory Pattern Normal 12/23/24 22:00 Blood Pressure 128/73 H 12/24/24 08:18 Blood Pressure Mean 91 12/24/24 08:18 Blood Pressure Source Monitor 12/24/24 08:18 Blood Pressure Position Semi-Fowlers 12/24/24 08:18 Blood Pressure Location Right Arm 12/24/24 08:18 Pulse Ox 93 12/24/24 08:18 Oxygen Delivery Method Nasal Cannula 12/24/24 09:43 Oxygen Flow Rate (L/min) 3 12/24/24 09:43 I&O: I&O Last 24 Hours 3 12/23/24 12/23/24 12/24/24 11:59 23:59 11:59 Intake Total 300 / 1340 1040 / 1340 300 / 300 Output Total 400 / 400 Balance 300 / 940 640 / 940 300 / 300 I&O: Total Stay 3 12/21/24 13:45 thru 12/24/24 09:42 Intake Total 3645.00 Output Total 625 Balance 3020.00 Current Meds Ordered / Administered: Current meds ordered / Administered 3 Generic Name Dose Route Start Last Admin Trade Name Rey PRN Reason Stop Dose Admin Acetaminophen 650 mg 12/21/24 17:30 Acetaminophen 325 Mg Tablet PO Q6H PRN PRN Pain 1-10 Or Fever>100.7 Albuterol/Ipratropium 3 ml 12/21/24 17:30 12/24/24 06:53 Ipratropium/Albuterol Sulfate 3 Ml Ampul.Neb INHALATION 3 ml Q6HWA.RT DIGNA Administration Alprazolam 0.25 mg 12/23/24 14:16 12/23/24 14:51 Alprazolam 0.25 Mg Tablet PO 0.25 mg TID PRN Administration ANXIETY Amlodipine Besylate 5 mg 12/22/24 10:00 12/24/24 08:20 Amlodipine 5 Mg Tablet PO 5 mg DAILY DIGNA Administration Protocol Budesonide 0.5 mg 12/21/24 17:45 12/24/24 06:53 Budesonide Respules 0.5 Mg/2 Ml Ampul.Neb. INHALATION 0.5 mg Q12H.RT DIGNA Administration Enoxaparin Sodium 40 mg 12/22/24 10:00 12/24/24 08:20 Enoxaparin 40 Mg/0.4 Ml Syringe SC 40 mg DAILY DIGNA Administration Guaifenesin 600 mg 12/21/24 18:09 Guaifenesin 600 Mg Tablet PO Q12H PRN COUGH/CONGESTION Guaifenesin 600 mg 12/22/24 10:35 12/24/24 08:20 Guaifenesin 600 Mg Tablet PO 600 mg BID DIGNA Administration Vancomycin IV-PHARMACY TO DOSE 500 mls @ 250 mls/hr 12/21/24 17:30 1 each/ Sodium Chloride IV X1 PRN Rx to Dose Protocol Cefepime HCl 2 gm/ Sodium 100 mls @ 200 mls/hr 12/21/24 22:00 12/24/24 06:37 Chloride IV Infused Q8 DIGNA Infusion Sodium Chloride 100 mls @ 15 mls/hr 12/21/24 17:35 IV .Q6H40M PRN Saline Flush Sodium Chloride 100 mls @ 15 mls/hr 12/21/24 17:35 IV .Q6H40M PRN Additional IVPB Infusion Vancomycin HCl 1,000 mg in 200 mls @ 200 mls/hr 12/23/24 08:00 12/24/24 09:42 Vancomycin IV Infused Q12H DIGNA Infusion Melatonin 3 mg 12/21/24 17:30 Melatonin 3 Mg Tablet PO QHS PRN PRN INSOMNIA Montelukast Sodium 10 mg 12/21/24 22:00 12/23/24 21:27 Montelukast 10 Mg Tablet PO 10 mg QHS DIGNA Administration Ondansetron HCl 4 mg 12/21/24 17:30 Ondansetron 4 Mg/2 Ml Vial IV Q8H PRN PRN NAUSEA/VOMITING Pantoprazole Sodium 40 mg 12/22/24 10:00 12/24/24 08:20 Pantoprazole Sodium 40 Mg Tablet PO 40 mg DAILY DIGNA Administration Sodium Chloride 10 - 40 ml 12/21/24 17:35 12/23/24 20:01 0.9% Saline Lock 10 Ml Syringe IV 10 ml UD PRN Administration SALINE FLUSH Tamsulosin HCl 0.4 mg 12/22/24 17:30 12/23/24 18:18 Tamsulosin Hcl 0.4 Mg Capsule PO 0.4 mg DAILY@1730 [facility] Administration Vancomycin Protocol 1 lab 12/24/24 18:30 Vancomycin Trough/Random Due MC 12/24/24 21:30 DAILY [facility] Lab / Micro Data 12/24/24 05:36 12/24/24 05:36 Labs: Laboratory Results - last 24 hr 12/24/24 05:36: WBC 9.8, RBC 3.75 L, Hgb 10.9 L, Hct 33.2 L, MCV 88.5, MCH 29.1, MCHC 32.8, RDW Std Deviation 46.0 H, RDW Coeff of Joyce 14.2, Plt Count 545 H, MPV 8.7, Immature Gran % (Auto) 0.400, Neut % (Auto) 70.2 H, Lymph % (Auto) 13.9 L, [place] % (Auto) 9.5, Eos % (Auto) 5.0, Baso % (Auto) 1.0, Absolute Neuts (auto) 6.9, Absolute Lymphs (auto) 1.36, Nucleated RBC % 0, Sodium 142, Potassium 3.9, Chloride 102, Carbon Dioxide 23.1, Anion Gap 17 H, BUN 16, Creatinine 0.63 L, Estim Creat Clear Calc 69.44, Est GFR (MDRD) Non-Af 100, BUN/Creatinine Ratio 26.1 H, Glucose 97, Calcium 9.0 Micro: Microbiology 12/21/24 16:51 Blood Culture (Wb) - Left Wrist Blood Culture - Preliminary No growth in 48 hours. 12/21/24 16:51 Blood Culture (Wb) - Right Wrist Blood Culture - Preliminary No growth in 48 hours. 12/21/24 08:20 Sputum, Expectorated/Coughed Gram Stain - Final 12/22/24 08:45 Nasal Secretion MRSA (PCR) - Final Imaging CT Chest reviewed: appears almost fibrotic except for one area of dense consolidation which cannot differentiate mass vs consolidation from PNA Assessment and Plan . Assessment and plan: Pulmonary Problems: acute on chronic hypoxemic respiratory failure atypical pneumonia Plan: Agree with OP evaluation, looks less like TB and more like atypical PNA in setting of parenchymal tissue loss and fibrotic changes c/w NSIP Ambulatory oximetry to determine home O2 needs CM consultation for home O2 equipment Please schedule with Pulmary clinic for eval and repeat imaging Signing off Curly Pena MD [facility] The entirety of this encounter was done via Telemedicine Physical Exam Const alert, oriented x3 and no apparent distress General Appearance: cooperative and well developed HEENT normocephalic, head/scalp atraumatic and moist oral mucous membranes General Ear: hearing grossly impaired Mouth: oral and palatal mucosa normal Throat: posterior oropharynx normal Eyes PERRL, EOMs intact bilaterally, conjunctivae normal and no scleral icterus Neck full ROM, no lymphadenopathy, supple and no JVD Resp normal respiratory effort and no use of accessory muscles Effort and Inspection: able to speak in complete sentences Auscultation: rales Cardio regular rate, regular rhythm, S1 normal heart sound and S2 normal heart sound GI normal to inspection, nondistended, normoactive bowel sounds, soft to palpation and non-tender no CVA tenderness Extremity no clubbing, cyanosis or edema Skin no rashes or lesions noted Neuro oriented x3, CN's II-XII intact bilaterally, moves all extremities and no focal motor deficits Speech: speech normal Psych cooperative and affect normal Appearance: well kempt Subjective Subjective CC: SOB cough HPI: tubular splitting machine tender semiology for respirator problems. H/O home O2 need, but has returned home equipment. 12/24 - currently on 3LNC, awaiting ambulatory oximetry testing by RT. Denies hemoptysis, nights weats, chills, chest pain, weight loss. In airborne iso for AFB r/o. Patient ammenable to OP eval of CT abnormalities including Pulmonology Clinic Eval, repeat imaging, possible bronch and BAL/brushing; ammenable to dc on home O2 and use of O2 concentrator; counseled on red flag symptoms and to seek ED eval if presenting with hemoptysis, chest pain, syncope or fever
--- NOTE | 2024-12-24 10:36 | PN.HOSP_ITS ---
Reason for Visit Reason for Visit: Diagnoses Pneumonia, unspecified organism (12/21/24) Chronic respiratory failure with hypoxia (12/21/24) Abnormal weight loss (12/21/24) Objective Data Objective Data Vital Signs: Vital Signs Temp Pulse Resp BP Pulse Ox O2 Del Method O2 Flow Rate 97.5 F L 76 18 128/73 H 93 Nasal Cannula 3 12/24/24 08:18 12/24/24 08:18 12/24/24 08:18 12/24/24 08:18 12/24/24 08:18 12/24/24 09:43 12/24/24 09:43 Oxygen Flow Rate (L/min) 3 Oxygen Delivery Method Nasal Cannula Weight: 133 lb 9.602 oz Body Mass Index (BMI) 18.6 Intake & Output: Intake and Output for Last 24 Hours 12/22/24 12/23/24 12/24/24 23:59 23:59 23:59 Intake Total 1070 / 1070 1340 / 1340 300 / 300 Output Total 225 / 225 400 / 400 Balance 845 / 845 940 / 940 300 / 300 Lab / Micro Data 12/24/24 05:36 12/24/24 05:36 Labs: Laboratory Results - last 24 hr 12/24/24 05:36: WBC 9.8, RBC 3.75 L, Hgb 10.9 L, Hct 33.2 L, MCV 88.5, MCH 29.1, MCHC 32.8, RDW Std Deviation 46.0 H, RDW Coeff of Joyce 14.2, Plt Count 545 H, MPV 8.7, Immature Gran % (Auto) 0.400, Neut % (Auto) 70.2 H, Lymph % (Auto) 13.9 L, [place] % (Auto) 9.5, Eos % (Auto) 5.0, Baso % (Auto) 1.0, Absolute Neuts (auto) 6.9, Absolute Lymphs (auto) 1.36, Nucleated RBC % 0, Sodium 142, Potassium 3.9, Chloride 102, Carbon Dioxide 23.1, Anion Gap 17 H, BUN 16, Creatinine 0.63 L, Estim Creat Clear Calc 69.44, Est GFR (MDRD) Non-Af 100, BUN/Creatinine Ratio 26.1 H, Glucose 97, Calcium 9.0 Micro: Microbiology 12/21/24 16:51 Blood Culture (Wb) - Left Wrist Blood Culture - Preliminary No growth in 48 hours. 12/21/24 16:51 Blood Culture (Wb) - Right Wrist Blood Culture - Preliminary No growth in 48 hours. 12/21/24 08:20 Sputum, Expectorated/Coughed Gram Stain - Final 12/22/24 08:45 Nasal Secretion MRSA (PCR) - Final 12/22/24 08:29 Mucosa - Nose Respiratory Panel (PCR) - Final 12/22/24 07:59 Mucosa - Nasopharyngeal Coronavirus COVID-19 PCR - Final Physical Exam Narrative Seen and examined. Shortness of breath is better. Patient asking for discharge. Oxygen testing was done in the morning. He got short of breath on walking ultrasound shows small pleural effusion not safe for thoracocentesis He was admitted with with symptoms of shortness of breath, on and off cough with greenish-yellow sputum and dyspnea ongoing since July 2024. Physical exam General: Alert, Oriented x3, Cooperative HEENT: Hard of hearing. Atraumatic, PERRLA, EOMI, Normocephalic Oral: Oral mucosa dry no Gingival or Mucosal Lesions/ Ulcerations Neck: Supple, No JVD, Negative Carotid Bruits Chest wall/Lungs: Air entry diminished in bilateral lung bases. Mild coarse crepitation in lung bases. No tachypnea but dyspnea on exertion Cardiovascular: Regular rate, Regular Rhythm, Normal S1, Normal S2, No M/G/R Abdomen: Bowel Sounds Present, Soft, Non Tender, Non-Distended : No dysuria. No renal angle tenderness. No suprapubic tenderness. Extremities: No edema, Capillary Refill Less than 3 Seconds Skin: No rashes, No breakdown Musculoskeletal: No Tenderness to Palpation of Joints or Extremities. ROM restricted Neurological: Cranial nerves II-XII grossly intact, DTR 2+/4. No acute focal neurological deficit. Psych/Mental Status: Flat affect Const alert, oriented x3 and no apparent distress Constitutional Narrative: Elderly male, thin and somewhat cachectic appearing, mildly fatigued appearing but otherwise sitting up comfortably in bed, conversing normally and in no acute distress. General Appearance: cooperative and comfortable HEENT normocephalic, head/scalp atraumatic, hearing grossly normal bilaterally, nasal mucous membranes and turbinates normal and moist oral mucous membranes Eyes PERRL, EOMs intact bilaterally and conjunctivae normal Neck full ROM Chest inspection of chest normal Resp normal respiratory effort and no use of accessory muscles Resp Narrative: Breathing comfortably on 2 L nasal cannula at rest. Decreased breath sounds in right upper to midlung zone with mild wheezing and crackles noted in that area. Otherwise fairly good air movement throughout. Cardio regular rate, regular rhythm, no murmurs and peripheral pulses 2+ throughout GI normal to inspection, nondistended, normoactive bowel sounds, soft to palpation, non-tender and non-distended Back/Spine normal ROM Extremity normal to inspection, full ROM and no pedal edema Skin no rashes or lesions noted Neuro moves all extremities and no focal motor deficits Speech: speech normal Psych mental status grossly normal Assessment & Plan Assessment/Plan (1) Pneumonia: (2) Chronic respiratory failure with hypoxia: (3) Weight loss: PLAN: Plan Patient is a 74-year-old male who presented to [facility] ED on 12/21/2024 with worsening shortness of breath and weight loss. 1. Right lower lobe consolidation with right pleural effusion with suspicion of neoplasm and postobstructive pneumonia. Patient is being admitted in PCU. CTA chest immediately reviewed and shows no pulmonary embolism. Right lower lobe shows scattered areas of partial consolidation likely pneumonia and underlying mass. There is new since prior exam of CT low-dose screening in August 2021 There is no pulmonary service available in person in the hospital for bronchoscopy. Tele PCC was consulted and I discussed with Dr. Carlos and he said no urgent need for bronchoscopy. He ordered noninvasive test for pneumonia including fungal and advised ultrasound guided diagnostic thoracocentesis for culture and fluid cytology. Patient on IV IV vancomycin and Zosyn 12/23: Patient on 2 L of oxygen. Ultrasound chest does not show enough fluid for safe thoracocentesis. Continue treatment for COPD. Sputum culture pending. MRSA PCR respiratory panel are negative. COVID PCR negative 12/24: Patient gets short of breath and dyspnea on walking during oxygen testing. I have reviewed the oxygen testing, and this patient qualifies for the home equipment and portability. The patient is mobile in the home and the community. Continue the If of treatment Anticipate discharge tomorrow 2. 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 Previously followed with outpatient pulmonology. Was previously on 2 L nasal cannula at home but self discontinued oxygen due to cost. Does not seem to be in acute COPD exacerbation therefore hold steroid. Continue DuoNeb 3. Moderate protein calorie malnutrition: Patient lost 35 pounds since August 2024 4. He said he was 150 pound in 2017 and then again weight and was 176 in 2017 after quitting smoking. He was 150 pound about August 29. This raises the concern for cancer. This was explained to patient's daughter at the bedside. BMI 18.6 kg/m? ? Nutrition consulted. 4. Acute debility ? PT/OT/case management consulted. Patient lives at home alone and reports worsening weakness in setting of suspected cancer. Appreciate therapy recommendations. Chronic medical conditions: ? Hypertension: Continue home amlodipine. Will hold chlorthalidone and lisinopril for now, restart as needed. ? GERD: Continue home PPI. ? BPH with obstructive symptoms: Continue home Flomax. ? Former tobacco use: 40 pack years smoking. Quit smoking 2017 encouraged continued cessation. DVT prophylaxis: Lovenox CODE STATUS: DNR CCA, DNI Expected disposition: Home, 2 to 3 days Clinical Impression(s) from Imaging Studies Chest X-Ray 12/21/24 15:13 IMPRESSION: 1. Emphysema with considerable patchy opacities on the RIGHT which may reflect pneumonia however there is suggestion of a 3.1 cm cavitary lesion in this region, not well delineated. Recommend CT, ideally with IV contrast. 2. Suspected trace to small RIGHT pleural effusion. 3. Additional description as above. Reading Location: [facility] Chest CTA 12/21/24 15:40 IMPRESSION: 1. No pulmonary embolism. 2. COPD with right pleural effusion and scattered areas of partial consolidation, likely pneumonia. Underlying mass can not be entirely excluded. This is new since the prior exam. Repeat CT in 3 months is recommended. Reading [facility] Laboratory Results 12/21/24 14:40: WBC 12.2 H, RBC 4.15 L, Hgb 12.1 L, Hct 37.3 L, MCV 89.9, MCH 29.2, MCHC 32.4, RDW Std Deviation 46.7 H, RDW Coeff of Joyce 14.1, Plt Count 618 H, MPV 8.6, Immature Gran % (Auto) 0.400, Neut % (Auto) 80.8 H, Lymph % (Auto) 8.9 L, [place] % (Auto) 7.7, Eos % (Auto) 1.5, Baso % (Auto) 0.7, Absolute Neuts (auto) 9.9 H, Absolute Lymphs (auto) 1.09, Nucleated RBC % 0, Sodium 139, Potassium 4.3, Chloride 104, Carbon Dioxide 24.3, Anion Gap 11, BUN 18, Creatinine 0.90, Estim Creat Clear Calc 62.84, Est GFR (MDRD) Non-Af 90, BUN/Creatinine Ratio 19.8, Glucose 94, Calcium 9.5, Total Bilirubin 0.17, Direct Bilirubin 0.08, AST 11, ALT 6, Alkaline Phosphatase 77, Troponin T High Sens 19, Total Protein 7.0, Albumin 3.4, Globulin 3.6 12/22/24 04:28: WBC 4.0 L, RBC 3.83 L, Hgb 11.0 L, Hct 33.8 L, MCV 88.3, MCH 28.7, MCHC 32.5, RDW Std Deviation 46.4 H, RDW Coeff of Joyce 14.4, Plt Count 570 H, MPV 8.9, Sodium 138, Potassium 4.2, Chloride 104, Carbon Dioxide 23.8, Anion Gap 10, BUN 18, Creatinine 0.76, Estim Creat Clear Calc 69.44, Est GFR (MDRD) Non-Af 94, BUN/Creatinine Ratio 24.0 H, Glucose 159 H, Calcium 9.2 Charges/Coding Visit Charges Inpatient E&M: 15000 Subs Hosp L2
[2024-12-24] MEDS: Methylprednisolone Sod Succ 40 MG/ML VIAL IV ×2 (13:25→22:47)
[2024-12-24] MEDS: 0.9% Saline Lock 10 ML Syringe IV ×2 (13:26→22:47)
--- NOTE | 2024-12-24 13:26 | CASEMGMT ---
MICAELA HENSLEY updated that patient will discharge tomorrow. Per MICAELA HENSLEY assessment patient prefers [facility] for at discharge. RN CM made referral to [facility], they are able to accept patient with start of care for Friday. Patient qualifies for home oxygen at discharge. MICAELA HENSLEY in to discuss oxygen with patient. Patient states he prefers [facility] [place]. MICAELA HENSLEY explained that [facility] [place] does not do weekend setup and asked if this RN SHELLIE could contact daughter to make arrangements to get home oxygen setup today with [facility] [place]. Patient gave permission. MICAELA HENSLEY updated patient regarding [facility] acceptance and start of care. MICAELA HENSLEY called daughter and updated regarding HHC and [facility] [place] oxygen setup for today. Daughter states that [facility] [place] can call her to make arrangements for home oxygen setup today. Daughter had no further questions. MICAELA HENSLEY updated hospitalist, script received. MICAELA HENSLEY sent referral to [facility] [place] and called Tyranny at [facility] [place] and updated to call daughter Jessica to setup oxygen today. MICAELA HENSLEY updated discharge plans and green sheet placed on chart.
[2024-12-24] MEDS: Vancomycin Trough/Random Due 1 LAB MC (19:47)
[2024-12-24 20:16] LABS: Vancomycin, Trough Level 13.1 ug/mL (5.0-15.0)
--- NOTE | 2024-12-24 20:34 | PCM.RX.CS ---
Consult Antibiotic Management Pharmacy has been consulted to manage selected antibiotic: Vancomycin Type of Intervention Type of Consult: Follow-up Labs Labs: Sodium 142 mmol/L (133-145) 12/24/24 05:36 Potassium 3.9 mmol/L (3.3-5.1) 12/24/24 05:36 Chloride 102 mmol/L (98-108) 12/24/24 05:36 Carbon Dioxide 23.1 mmol/L (21.0-32.0) 12/24/24 05:36 Anion Gap 17 (5-15) H 12/24/24 05:36 BUN 16 mg/dL (4-19) 12/24/24 05:36 Creatinine 0.63 mg/dL (0.70-1.20) L 12/24/24 05:36 Est GFR (MDRD) Non-Af 100 (>60) 12/24/24 05:36 BUN/Creatinine Ratio 26.1 RATIO (10-20) H 12/24/24 05:36 Glucose 97 mg/dL (70-99) 12/24/24 05:36 Vancomycin Trough 13.1 ug/mL (5.0-15.0) 12/24/24 19:35 Microbiology Microbiology: Microbiology 12/24/24 01:49 Sputum, Expectorated/Coughed Gram Stain - Final 12/21/24 16:51 Blood Culture (Wb) - Left Wrist Blood Culture - Preliminary No growth in 48 hours. 12/21/24 16:51 Blood Culture (Wb) - Right Wrist Blood Culture - Preliminary No growth in 48 hours. 12/21/24 08:20 Sputum, Expectorated/Coughed Gram Stain - Final 12/22/24 08:45 Nasal Secretion MRSA (PCR) - Final 12/22/24 08:29 Mucosa - Nose Respiratory Panel (PCR) - Final 12/22/24 07:59 Mucosa - Nasopharyngeal Coronavirus COVID-19 PCR - Final Goal Trough Goal Trough: 15-20 mcg/mL Pharmacy Plan for Drug Dosing Pharmacy Plan for Drug Dosing: VANCOMYCIN LEVEL RECEIVED Current Vancomycin Dose: 1000mg IV Q12hr Number of Doses Received: 3 (of current regimen) Vancomycin Level: 13.1 Hours Since Last Dose: 11hr Renal Function: 0.63 Renal Function Trend: stable Vancomycin Plan/Comments: Patient had a trough drawn which resulted in a value of 13.1 (goal 15-20). The patient's level is slightly below goal. Will increase vancomycin dose to 1250mg IV Q12hr to start 12/24/24 @2100 Pending Level: 12/26/24 @0830, prior to 4th dose of new regimen Pharmacy Service will continue to monitor and adjust dosing as required.
[2024-12-24] MEDS: Vancomycin HCl 1,250 MG in 0.9% Normal Saline (250mL Bag) 250 ML 167 MG IV (20:48)
[2024-12-24] MEDS: Montelukast 10 MG Tablet PO (22:32)
[2024-12-25] VITALS (8 sets, daily range): BP systolic 120–143; BP diastolic 61–82; PULSE 78–110; RESP 20–22; TEMP 36.3–36.7; O2SAT 64–93
[2024-12-25] MEDS: Cefepime HCl 2 GM in 0.9% Normal Saline (100mL MB+) 100 ML IV (04:56)
[2024-12-25] MEDS: Methylprednisolone Sod Succ 40 MG/ML VIAL IV ×2 (04:57→14:41)
[2024-12-25] MEDS: Ipratropium/Albuterol Sulfate 3 ML AMPUL.NEB INHALATION (08:01)
[2024-12-25] MEDS: 0.9% Saline Lock 10 ML Syringe IV ×2 (08:26→14:41)
[2024-12-25] MEDS: Enoxaparin 40 MG/0.4 ML Syringe SC (08:26)
[2024-12-25] MEDS: Pantoprazole Sodium 40 MG Tablet PO (08:26)
[2024-12-25] MEDS: guaiFENesin 600 MG Tablet PO (08:26)
[2024-12-25] MEDS: amLODIPine 5 MG Tablet PO (08:26)
[2024-12-25] MEDS: Vancomycin HCl 1,250 MG in 0.9% Normal Saline (250mL Bag) 250 ML 167 MG IV (08:29)
--- NOTE | 2024-12-25 09:33 | PCM.DC ---
Discharge Instructions Diet Discharge Diet: No restrictions DC O2, CPAP, BIPAP needs Home O2 Discharge instructions: Yes Type of respiratory needs?: Oxygen Oxygen frequency: Continuous Continuous oxygen liters per minute: 3 Dressing / Incision Discharge Activity: Return to Normal Activity Weight Bearing Status: Weight bearing as tolerated Dressing / Incision Call your doctor if you observe: Fever of 101 or Higher, Coldness, Increased Pain, Numbness or Tingling, Change in Color, Inability to urinate, Inability to have a bowel movement, Shortness of breath, Dizziness, Fainting spells, Swelling in the ankles, Chest pain, Prolonged hiccupping, Increased palpitations (irregular heartbeat) and Calf discomfort Follow Up Care When: IN 2 WEEKS Test Results: Test results from this visit will be discussed in further detail at your follow-up appointment, if applicable. Discharge Plan Admission Admit Date/Time: 12/21/24 16:39 Primary Reason for Your Visit: Bilateral pneumonia Attending Provider: Pierre Conley Primary Care Provider: Hermes Castellon NP Consulting Providers: Cristi Hahn; Duran Vilchis Discharge Orders/Prescriptions Prescriptions: New prednisone 20 mg tablet 40 mg PO DAILY 5 Days Qty: 10 0RF dextromethorphan-guaifenesin [Mucus DM Max ER] 60-1,200 mg tablet extended release 12 hr 1 tab PO Q12H 7 Days Qty: 14 0RF cefdinir 300 mg capsule 300 mg PO BID 5 Days Qty: 10 0RF Continued lisinopril 5 mg tablet 5 mg PO DAILY albuterol sulfate [Ventolin HFA] 90 mcg/actuation HFA aerosol inhaler 2 puff inhalation Q6H PRN (Reason: shortness of breath or wheezing) omeprazole 40 mg capsule,delayed release(DR/EC) 40 mg PO DAILY albuterol sulfate 2.5 mg /3 mL (0.083 %) solution for nebulization 2.5 mg inhalation Q4H PRN (Reason: Sob &/Or Wheezing) Qty: 180 3RF chlorthalidone 25 mg tablet 25 mg PO DAILY amlodipine 5 mg tablet 5 mg PO DAILY Breztri Aerosphere 160-9-4.8 mcg/actuation HFA aerosol inhaler 2 inh INHALATION BID diclofenac sodium 1 % gel 2 ea topical 4X/DAY PRN (Reason: pain) montelukast 10 mg tablet 10 mg PO QHS tamsulosin 0.4 mg capsule 0.4 mg PO DAILY Flovent HFA 220 mcg/actuation HFA aerosol inhaler 2 inh inhalation BID Qty: 12 6RF Rx Instructions: administer with spacer Discontinued guaifenesin [Mucus Relief ER] 600 mg tablet extended release 12hr 600 mg PO Q12H Referrals / Follow Up: Cristi Hahn DO [Med Staff - Active Staff] - Within 2 Weeks (Chronic shortness of breath cough for 3 to 4 months) Hermes Castellon CITIZEN[employer]IP INSTRUCTOR, CITIZENSHIP INSTRUCTOR-C [Primary Care Provider] - Disposition Disposition (needs filled in before D/C Order can be placed): Home, Self Care
--- NOTE | 2024-12-25 10:59 | PCM.DC.SUM ---
Providers Date of Admission: 12/21/24 Date of Discharge: 12/25/24 Primary Care Physician: CECILIA Rodriguez Consultations 12/21/24 17:30 Consult: Dispatch Supervisor / Pulmonary Medicine Routine Consulting Provider: Cristi Hahn Reason for Consult: concern for new lung ca w/ postobstructive pna EMERGENT Consult: No MD Notified: Yes Date Notified: 12/22/24 Time Notified: 07:00 Method of Notification: Answering Service Reason For Visit: CONCERN FOR NEW LUNG CANCER W/ POSTOBSTRUCTIVE PNA Diagnosis Discharge Diagnosis (1) Pneumonia: Status: Acute Code(s): J18.9 - Pneumonia, unspecified organism (2) Chronic respiratory failure with hypoxia: Status: Chronic Code(s): J96.11 - Chronic respiratory failure with hypoxia (3) Weight loss: Status: Acute Code(s): R63.4 - Abnormal weight loss Plan Patient is a 74-year-old male who presented to [facility] ED on 12/21/2024 with worsening shortness of breath and weight loss. 1. Right lower lobe consolidation with right pleural effusion with suspicion of neoplasm and postobstructive pneumonia. Patient is being admitted in PCU. CTA chest immediately reviewed and shows no pulmonary embolism. Right lower lobe shows scattered areas of partial consolidation likely pneumonia and underlying mass. There is new since prior exam of CT low-dose screening in August 2021 There is no pulmonary service available in person in the hospital for bronchoscopy. Tele PCC was consulted and I discussed with Dr. Carlos and he said no urgent need for bronchoscopy. He ordered noninvasive test for pneumonia including fungal and advised ultrasound guided diagnostic thoracocentesis for culture and fluid cytology. Patient on IV IV vancomycin and Zosyn 12/23: Patient on 2 L of oxygen. Ultrasound chest does not show enough fluid for safe thoracocentesis. Continue treatment for COPD. Sputum culture pending. MRSA PCR respiratory panel are negative. COVID PCR negative 12/24: Patient gets short of breath and dyspnea on walking during oxygen testing. I have reviewed the oxygen testing, and this patient qualifies for the home equipment and portability. The patient is mobile in the home and the community. Continue the If of treatment Anticipate discharge tomorrow 12/25: Shortness of breath is better after starting Solu-Medrol. Patient wants to go home. Complaining of mild ear pain and otoscopy shows light reflex with normal bony landmarks but mild TM retraction, otitis. Prescriptions given for prednisone, cefdinir, and Mucinex DM. Home oxygen qualification test. Follow-up with pulmonary clinic in [address] Hahn 2. 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 Previously followed with outpatient pulmonology. Was previously on 2 L nasal cannula at home but self discontinued oxygen due to cost. Does not seem to be in acute COPD exacerbation therefore hold steroid. Continue DuoNeb 12/25: Patient respiratory distress and shortness of breath is much improved 3. Moderate protein calorie malnutrition: Patient lost 35 pounds since August 2024 4. He said he was 150 pound in 2017 and then again weight and was 176 in 2016 after quitting smoking. He was 150 pound about August 29. This raises the concern for cancer. This was explained to patient's daughter at the bedside. BMI 18.6 kg/m? ? Nutrition consulted. 4. Acute debility ? PT/OT/case management consulted. Patient lives at home alone and reports worsening weakness in setting of suspected cancer. Appreciate therapy recommendations. Chronic medical conditions: ? Hypertension: Continue home amlodipine. Will hold chlorthalidone and lisinopril for now, restart as needed. ? GERD: Continue home PPI. ? BPH with obstructive symptoms: Continue home Flomax. ? Former tobacco use: 40 pack years smoking. Quit smoking 2016 encouraged continued cessation. DVT prophylaxis: Lovenox CODE STATUS: DNR CCA, DNI Discharge medication reconciliation done. Discharge follow-up instructions completed. Discharge process discussed with the patient and all questions were answered to patient's satisfaction. Follow with PCP in 1 to 2 weeks Total time spent, exact 35 minutes on discharge meds reconciliation, examination, coordination of care with nurses and ancillary staff, review of imaging and blood test and discussion with the patient on follow-up instructions. Clinical Impression(s) from Imaging Studies Chest X-Ray 12/21/24 15:13 IMPRESSION: 1. Emphysema with considerable patchy opacities on the RIGHT which may reflect pneumonia however there is suggestion of a 3.1 cm cavitary lesion in this region, not well delineated. Recommend CT, ideally with IV contrast. 2. Suspected trace to small RIGHT pleural effusion. 3. Additional description as above. Reading Location: [facility] Chest CTA 12/21/24 15:40 IMPRESSION: 1. No pulmonary embolism. 2. COPD with right pleural effusion and scattered areas of partial consolidation, likely pneumonia. Underlying mass can not be entirely excluded. This is new since the prior exam. Repeat CT in 3 months is recommended. Reading Location: [facility] Laboratory Results 12/21/24 14:40: WBC 12.2 H, RBC 4.15 L, Hgb 12.1 L, Hct 37.3 L, MCV 89.9, MCH 29.2, MCHC 32.4, RDW Std Deviation 46.7 H, RDW Coeff of Joyce 14.1, Plt Count 618 H, MPV 8.6, Immature Gran % (Auto) 0.400, Neut % (Auto) 80.8 H, Lymph % (Auto) 8.9 L, Scurry % (Auto) 7.7, Eos % (Auto) 1.5, Baso % (Auto) 0.7, Absolute Neuts (auto) 9.9 H, Absolute Lymphs (auto) 1.09, Nucleated RBC % 0, Sodium 139, Potassium 4.3, Chloride 104, Carbon Dioxide 24.3, Anion Gap 11, BUN 18, Creatinine 0.90, Estim Creat Clear Calc 62.84, Est GFR (MDRD) Non-Af 90, BUN/Creatinine Ratio 19.8, Glucose 94, Calcium 9.5, Total Bilirubin 0.17, Direct Bilirubin 0.08, AST 11, ALT 6, Alkaline Phosphatase 77, Troponin T High Sens 19, Total Protein 7.0, Albumin 3.4, Globulin 3.6 12/22/24 04:28: WBC 4.0 L, RBC 3.83 L, Hgb 11.0 L, Hct 33.8 L, MCV 88.3, MCH 28.7, MCHC 32.5, RDW Std Deviation 46.4 H, RDW Coeff of Joyce 14.4, Plt Count 570 H, MPV 8.9, Sodium 138, Potassium 4.2, Chloride 104, Carbon Dioxide 23.8, Anion Gap 10, BUN 18, Creatinine 0.76, Estim Creat Clear Calc 69.44, Est GFR (MDRD) Non-Af 94, BUN/Creatinine Ratio 24.0 H, Glucose 159 H, Calcium 9.2 Medications at Discharge Home Medications albuterol sulfate 90 mcg/actuation aerosol inhaler (Ventolin HFA) 2 puff inhalation Q6H PRN shortness of breath or wheezing 08/08/21 lisinopril 5 mg tablet 5 mg PO DAILY blood pressure 08/08/21 omeprazole 40 mg capsule,delayed release 40 mg PO DAILY reflux 08/08/21 fluticasone propionate 220 mcg/actuation HFA aerosol inhaler (Flovent HFA) 2 inh inhalation BID #12 grams 02/05/22 albuterol sulfate 2.5 mg/3 mL (0.083 %) solution for nebulization 2.5 mg (3 mL) inhalation Q4H PRN Sob &/Or Wheezing #180 mL 03/06/22 amlodipine 5 mg tablet 5 mg PO DAILY blood pressure 12/21/24 budesonide 160 mcg-glycopyr 9 mcg-formot 4.8 mcg/actuation HFA inhaler (Breztri Aerosphere) 2 inh inhalation BID breathing 12/21/24 chlorthalidone 25 mg tablet 25 mg PO DAILY blood pressure 12/21/24 diclofenac sodium 1 % topical gel 2 ea topical 4X/DAY PRN pain 12/21/24 montelukast 10 mg tablet 10 mg PO QHS allergies 12/21/24 tamsulosin 0.4 mg capsule 0.4 mg PO DAILY reflux 12/21/24 cefdinir 300 mg capsule 300 mg PO BID 5 days #10 caps 12/25/24 dextromethorphan-guaifenesin ER 60 mg-1,200 mg tab,extend release,12hr (Mucus DM Max ER) 1 tab PO Q12H 1 week #14 tabs 12/25/24 prednisone 20 mg tablet 40 mg (2 x 20 mg) PO DAILY 5 days #10 tabs 12/25/24 Physical Exam Narrative Seen and examined. Patient complained of mild ear pain mainly in the right ear. Shortness of breath is better. Chest ultrasound shows small pleural effusion not safe for thoracocentesis He was admitted with with symptoms of shortness of breath, on and off cough with greenish-yellow sputum and dyspnea ongoing since July 2024. Physical exam General: Alert, Oriented x3, Cooperative HEENT: Hard of hearing. Otoscopy shows normal bony landmarks, light reflex but mild TM retraction. Mild wax in the left external auditory canal. Mild otitis media Oral: Oral mucosa dry no Gingival or Mucosal Lesions/ Ulcerations Neck: Supple, No JVD, Negative Carotid Bruits Chest wall/Lungs: Air entry diminished in bilateral lung bases. Mild coarse crepitation in lung bases. No tachypnea but dyspnea on exertion Cardiovascular: Regular rate, Regular Rhythm, Normal S1, Normal S2, No M/G/R Abdomen: Bowel Sounds Present, Soft, Non Tender, Non-Distended : No dysuria. No renal angle tenderness. No suprapubic tenderness. Extremities: No edema, Capillary Refill Less than 3 Seconds Skin: No rashes, No breakdown Musculoskeletal: No Tenderness to Palpation of Joints or Extremities. ROM restricted Neurological: Cranial nerves II-XII grossly intact, DTR 2+/4. No acute focal neurological deficit. Psych/Mental Status: Flat affect Weight / BMI Weight Weight: 133 lb 9.602 oz Body Mass Index (BMI) 18.6 ABG / Lab / Microbiology Data 12/24/24 05:36 12/24/24 05:36 Laboratory: Laboratory Results - last 24 hr 12/24/24 19:35: Vancomycin Trough 13.1 Microbiology: Microbiology 12/24/24 01:49 Sputum, Expectorated/Coughed Gram Stain - Final 12/24/24 01:49 Sputum, Expectorated/Coughed Respiratory Culture - Preliminary Presumptive C albicans 12/21/24 08:20 Sputum, Expectorated/Coughed Gram Stain - Final 12/21/24 08:20 Sputum, Expectorated/Coughed Respiratory Culture - Final Presumptive C albicans 12/21/24 16:51 Blood Culture (Wb) - Left Wrist Blood Culture - Preliminary No growth in 48 hours. 12/21/24 16:51 Blood Culture (Wb) - Right Wrist Blood Culture - Preliminary No growth in 48 hours. 12/22/24 08:45 Nasal Secretion MRSA (PCR) - Final 12/22/24 08:29 Mucosa - Nose Respiratory Panel (PCR) - Final 12/22/24 07:59 Mucosa - Nasopharyngeal Coronavirus COVID-19 PCR - Final D/C Instructions Discharge Diet: No restrictions Weight Bearing Status: Weight bearing as tolerated Call your doctor if you observe: Fever of 101 or Higher, Coldness, Increased Pain, Numbness or Tingling, Change in Color, Inability to urinate, Inability to have a bowel movement, Shortness of breath, Dizziness, Fainting spells, Swelling in the ankles, Chest pain, Prolonged hiccupping, Increased palpitations (irregular heartbeat) and Calf discomfort DC O2, CPAP, BIPAP Needs Home O2 Discharge instructions: Yes Type of respiratory needs?: Oxygen Oxygen frequency: Continuous Continuous oxygen liters per minute: 3 DC home with Oxygen: Yes Home O2 MD Review: I have reviewed the oxygen testing, and the patient qualifies for home oxygen equipment and portability. The patient is mobile in the home and the community. When: IN 2 WEEKS Meaningful Use Info Meaningful Use Meaningful Use Diagnoses (Choose all that apply): None applicable Ischemic Stroke Statin Dosing Therapy Reference: STATIN DOSE THERAPY REFERENCE: * Patients > 75 years receive moderate or high dose statin therapy. * Patients 75 years or YOUNGER should receive HIGH intensity statin dose unless contraindicated. You will be required to document reason for non-treatment if statin daily dose does not meet guidelines. HIGH DOSE STATIN THERAPY DAILY Atorvastatin > than or = to 40 mg Rosuvastatin > than or = to 20 mg Amlodipine + Atorvastatin > than or = to 2.5/40 mg Ezetimibe + Simvastatin 10/80 mg Simvastatin 80mg Discharge Plan Admission Admit Date/Time: 12/21/24 16:39 Primary Reason for Your Visit: Bilateral pneumonia Attending Provider: Pierre Conley Primary Care Provider: Hermes Castellon NP Consulting Providers: Cristi Hahn; Duran Vilchis Discharge Orders/Prescriptions Prescriptions: New prednisone 20 mg tablet 40 mg PO DAILY 5 Days Qty: 10 0RF dextromethorphan-guaifenesin [Mucus DM Max ER] 60-1,200 mg tablet extended release 12 hr 1 tab PO Q12H 7 Days Qty: 14 0RF cefdinir 300 mg capsule 300 mg PO BID 5 Days Qty: 10 0RF Continued lisinopril 5 mg tablet 5 mg PO DAILY albuterol sulfate [Ventolin HFA] 90 mcg/actuation HFA aerosol inhaler 2 puff inhalation Q6H PRN (Reason: shortness of breath or wheezing) omeprazole 40 mg capsule,delayed release(DR/EC) 40 mg PO DAILY albuterol sulfate 2.5 mg /3 mL (0.083 %) solution for nebulization 2.5 mg inhalation Q4H PRN (Reason: Sob &/Or Wheezing) Qty: 180 3RF chlorthalidone 25 mg tablet 25 mg PO DAILY amlodipine 5 mg tablet 5 mg PO DAILY Breztri Aerosphere 160-9-4.8 mcg/actuation HFA aerosol inhaler 2 inh INHALATION BID diclofenac sodium 1 % gel 2 ea topical 4X/DAY PRN (Reason: pain) montelukast 10 mg tablet 10 mg PO QHS tamsulosin 0.4 mg capsule 0.4 mg PO DAILY Flovent HFA 220 mcg/actuation HFA aerosol inhaler 2 inh inhalation BID Qty: 12 6RF Rx Instructions: administer with spacer Discontinued guaifenesin [Mucus Relief ER] 600 mg tablet extended release 12hr 600 mg PO Q12H Referrals / Follow Up: Cristi Hahn DO [Med Staff - Active Staff] - Within 2 Weeks (Chronic shortness of breath cough for 3 to 4 months) Hermes Castellon GRANTS ASSISTANT, GRANTS ASSISTANT-C [Primary Care Provider] - Disposition Disposition (needs filled in before D/C Order can be placed): Home, Self Care Charges/Coding Visit Charges Inpatient E&M: 67433 Disch Hosp >30min
== END 2024-12-25 16:05 | disposition home or self-care (01) | DRG 194 ==
LOC: ED 16:43 → PCU 17:04
PROVIDERS: Internal Medicine Pulmonary Disease; Admitting Provider Hospitalist; Emergency Provider Emergency Medicine; PCP Nurse Practitioner Primary Care; Visit Provider Internal Medicine
DX: J18.9 Pneumonia, unspecified organism (principal); E44.0 Moderate protein-calorie malnutrition; J96.11 Chronic respiratory failure with hypoxia; J90 Pleural effusion, not elsewhere classified; J44.0 Chronic obstructive pulmonary disease with (acute) lower respiratory infection; N13.8 Other obstructive and reflux uropathy; Z68.1 Body mass index [BMI] 19.9 or less, adult; Z66 Do not resuscitate; I10 Essential (primary) hypertension; D64.9 Anemia, unspecified; K21.9 Gastro-esophageal reflux disease without esophagitis; J45.909 Unspecified asthma, uncomplicated; R63.4 Abnormal weight loss; R53.81 Other malaise; Z79.51 Long term (current) use of inhaled steroids; Z87.891 Personal history of nicotine dependence; N40.1 Benign prostatic hyperplasia with lower urinary tract symptoms
CPT/HCPCS: 36415; 71045; 71275; 76604; 80048; 80076; 80202; 83615; 83735; 84100; 84145; 84155; 84484; 85025; 85027; 85652; 86003; 86037; 86038; 86140; 86200; 86225; 86235; 86431; 86480; 86606; 86698; 87015; 87040; 87070; 87102; 87116; 87205; 87206; 87633; 87635; 87641; 87899; 93005; 94640; 94668; 97161; 97165; 97802; 99285; Q9967; A4216

== ENCOUNTER → 2025-01-28 | Outpatient (CLI) | payer MEDICARE, SELFPAY | END | disposition home or self-care (01) | LOC: PSN 12:47 | PROVIDERS: PCP Nurse Practitioner Primary Care; Referring Provider Internal Medicine Critical Care Medicine; Visit Provider Internal Medicine Critical Care Medicine | DX: J43.1 Panlobular emphysema (principal) | CPT/HCPCS: 94060; 94726; 94729 ==

== ENCOUNTER → 2025-02-01 | Outpatient (CLI) | payer MEDICARE, SELFPAY ==
--- NOTE | 2025-02-01 12:34 | CT_ITS ---
PROCEDURE: CHEST WITHOUT CONTRAST ([facility]), 02/01/2025 REASON FOR EXAM: ABNORMAL CT CHEST TECHNIQUE: CT chest was performed without IV contrast. Multiplanar reformats were generated. RADIATION DOSE SUMMARY: CTDlvol: 7.67 mGy DLP: 316.36 mGycm One or more dose reduction techniques were used (e.g., Automated exposure control, adjustment of the mA and/or kV according to patient size, use of iterative reconstruction technique). COMPARISON: 12/22/2024 and prior FINDINGS: Note that evaluation of the vasculature, jazlyn, and soft tissues is limited in the absence of IV contrast. Heart/pericardium: Mild aortic and mitral annular calcification. Aorta: Moderate atherosclerosis. Pulmonary arteries: Normal in caliber. Lymph nodes: RIGHT paratracheal/precarinal node, 14 mm short axis, previously probably obscured by streak artifact, not definitely changed. Subcarinal node, 10 mm short axis, grossly unchanged. No measurable hilar lymphadenopathy evident in the absence of IV contrast noting that the evaluation is limited.. Lungs/pleura: Slightly decreased small RIGHT pleural effusion. Emphysema. Improved but persistent irregular superior segment RIGHT lower lobe, RIGHT middle lobe, and RIGHT upper lobe airspace disease with mild adjacent ground-glass.. Few small nodules on the LEFT are unchanged from 08/24/2021. Mild biapical pleural/parenchymal scarring. Airways: Redemonstrated central bronchial wall thickening. New mild debris within the dependent trachea, favor airway secretions. Chest wall: Unremarkable. Upper abdomen: Hepatic granulomas.. Musculoskeletal: Demineralization. Mild spondylosis. Mild scoliosis may be positional.. CT/Chest without Contrast IMPRESSION: 1. Improved but persistent irregular multifocal airspace disease on the RIGHT, again possibly reflecting pneumonia given slight interval improvement however given persistence and emphysema continued follow-u p in 2-3 months is again recommended as previously suggested. Additionally, given emphysema, consider ongoing lung cancer screeni ng per the below. 2. Mild mediastinal lymphadenopathy, nonspecific and potentially reactive to th e above, probably unchanged allowing for technical limitations. Attention on above follow-up imaging. 3. Slightly decreased small RIGHT pleural effusion. 4. Additional description as above. The USPSTF recommends annual screening for lung cancer with low-dose computed t omography (LDCT) in adults aged 50 to 80 years who have a 20 pack-year smoking history and currently smoke or have quit within the past 15 years. Reading Location: [id number]
[2025-02-01 13:00] VITALS: PULSE 102; PULSE 105; PULSE 109; PULSE 112; PULSE 114; PULSE 73; PULSE 88; O2SAT 88; O2SAT 89; O2SAT 91; O2SAT 92; O2SAT 94
--- NOTE | 2025-02-01 13:18 | CPS ---
Pt was placed on room air upon arrival. Room air at rest saturation was 88%. Pt was put back on at 2 lpm pulse dose and walk started. Pt was increased to 3 lpm at 1 minute into walk. Three minutes into walk pt was 88% and increased to 4lpm pulse. Pt was able to complete walk on 4 lpm pulse dose. Pt did take multiple breaks for C/O S.O.B. Pt did notice a difference in his S.O.B and felt much less short of breath when put on the 4lpm pulse dose.
--- NOTE | 2025-02-04 09:14 | PCM.PSN.6M ---
PSN 6 Minute Walk Test 6 Minute Walk Test 6 Minute Walk Test: 6 Minute Walk Test PSN:6-Minute Walk Test Start: 02/01/25 13:13 Freq: Status: Active Protocol: RESP.6MINW Document 02/01/25 13:00 AEH (Rec: 02/01/25 13:24 AEH [id number]) 6 Minute Walk Test Date Performed 02/01/25 Time Performed 13:00 Height 5 ft 11 in Weight: 135 lb Weight in Pounds 135.[address]: Assistive device None used: Pre-test Oxygen Delivery Room Air Method Pulse Ox (%) 88 Pulse Rate (60-100 73 beats/min) Dyspnea Steven Scale ( 0.5 0-10) Exertion Steven Scale 6 (6-20) 1st minute Oxygen Flow Rate (L/ 2 min) (L/min) Oxygen Delivery Nasal Cannula Method Pulse Ox (%) 89 Pulse Rate (60-100 102 H beats/min) 2nd minute Oxygen Flow Rate (L/ 3 min) (L/min) Oxygen Delivery Nasal Cannula Method Pulse Ox (%) 91 Pulse Rate (60-100 105 H beats/min) Dyspnea Steven Scale ( 3 0-10) Number of Rests 1 Taken Reported Symptoms Increased Work of Breathing 3rd minute Oxygen Flow Rate (L/ 3 min) (L/min) Oxygen Delivery Nasal Cannula Method Pulse Ox (%) 88 Pulse Rate (60-100 112 H beats/min) Number of Rests 1 Taken Reported Symptoms Increased Work of Breathing 4th minute Oxygen Flow Rate (L/ 4 min) (L/min) Oxygen Delivery Nasal Cannula Method Pulse Ox (%) 94 Pulse Rate (60-100 114 H beats/min) Dyspnea Steven Scale ( 2 0-10) Number of Rests 1 Taken Reported Symptoms Increased Work of Breathing 5th minute Oxygen Flow Rate (L/ 4 min) (L/min) Oxygen Delivery Nasal Cannula Method Pulse Ox (%) 92 Pulse Rate (60-100 112 H beats/min) Number of Rests 1 Taken Reported Symptoms Increased Work of Breathing 6th minute Oxygen Flow Rate (L/ 4 min) (L/min) Oxygen Delivery Nasal Cannula Method Pulse Ox (%) 92 Pulse Rate (60-100 109 H beats/min) Dyspnea Steven Scale ( 1.5 0-10) Exertion Steven Scale 13 (6-20) Post-test Oxygen Flow Rate (L/ 4 min) (L/min) Oxygen Delivery Nasal Cannula Method Pulse Ox (%) 92 Pulse Rate (60-100 88 beats/min) Full Laps Walked 7 Partial Lap, Number 19 of Tiles Walked Total Distance 432 Walked (ft) 02/01/25 13:18 Cardiopulmonary Services by Mari Rodrigez Pt was placed on room air upon arrival. Room air at rest saturation was 88%. Pt was put back on at 2 lpm pulse dose and walk started. Pt was increased to 3 lpm at 1 minute into walk. Three minutes into walk pt was 88% and increased to 4lpm pulse. Pt was able to complete walk on 4 lpm pulse dose. Pt did take multiple breaks for C/O S.O.B. Pt did notice a difference in his S.O.B and felt much less short of breath when put on the 4lpm pulse dose. Initialized on 02/01/25 13:18 - END OF NOTE Interpretation Interpretation: The patient ambulated 432 feet over the course of 6 minutes beginning on room air without assistive devices. Pretesting oxygen saturation was noted to be 88% on room air. 2 L/min of pulsed dose supplemental oxygen was applied for the commencement of testing. With ambulation, the patient desaturated on several occasions, requiring an escalation in flow rate to 4 L/min pulsed dose oxygen to maintain saturations. Recommendations Recommendations: 2 L/min of pulsed dose supplemental oxygen is required at rest, while 4 L/min is required with exertion.
== END | disposition home or self-care (01) ==
LOC: PSN 12:31
PROVIDERS: PCP Nurse Practitioner Primary Care; Referring Provider Internal Medicine Critical Care Medicine; Visit Provider Internal Medicine Critical Care Medicine
DX: J96.11 Chronic respiratory failure with hypoxia (principal)
CPT/HCPCS: 71250; 94618

== ENCOUNTER → 2025-04-15 | Outpatient (CLI) | payer MEDICARE, SELFPAY ==
--- NOTE | 2025-04-15 13:42 | CT_ITS ---
PROCEDURE: CHEST WITHOUT CONTRAST 04/15/2025 REASON FOR EXAM: ABNORMAL CHEST CT Shortness of breath. TECHNIQUE: Chest CT without contrast. Coronal and Sagittal reconstruction series were provided. One or more dose reduction techniques were used (e.g., Automated exposure control, adjustment of the mA and/or kV according to patient size, use of iterative reconstruction technique RADIATION DOSE SUMMARY: CTDlvol: 8.35 mGy DLP: 309.3 mGycm COMPARISON: Prior study dated February 01, 2025. FINDINGS: Hardware: None Lymph nodes: Stable small benign-appearing mediastinal lymph nodes. Heart and Vasculature: Atherosclerotic calcification of the aortic arch and descending thoracic aorta. Coronary Artery Calcifications: Present Lungs and Airways: Hyperinflation. Moderate emphysematous changes. Since prior study, there has been almost complete resolution of the infiltration in the right lower lobe and right lower lobe. Mild residual scarring persists with bullous formation. Pleura: No evidence of pleural effusion. Upper Abdomen: Unremarkable Bones: Degenerative changes of the thoracic spine. CT/Chest without Contrast IMPRESSION: Coronary artery calcification (CAC) is is present Interval improvement in the right hemithorax as described with residual scarrin g and mild residual ground-glass appearance. Reading Location: [place] [id number]
== END | disposition home or self-care (01) ==
LOC: CT 13:40
PROVIDERS: PCP Nurse Practitioner Primary Care; Referring Provider Nurse Practitioner Family; Visit Provider Nurse Practitioner Family
DX: R93.89 Abnormal findings on diagnostic imaging of other specified body structures (principal)
CPT/HCPCS: 71250

== ENCOUNTER → 2025-05-25 | Outpatient (CLI) | payer MEDICARE, SELFPAY ==
[2025-05-25 12:47] VITALS: PULSE 104; PULSE 105; PULSE 106; PULSE 62; PULSE 72; PULSE 92; PULSE 95; O2SAT 87; O2SAT 91; O2SAT 92; O2SAT 93; O2SAT 95; O2SAT 97
--- NOTE | 2025-05-25 12:52 | CPS ---
Patient has O2 at home that he wears when needed. He is looking to get a POC as he is very active and does not have anything portable. Started the testing on room air, SpO2 87% a little after the 2 minute rashaun, placed patient on 2 lpm, SpO2 recovered to 95%. Patient walked the rest of the 6 minutes on 2 lpm O2 with one brief 5-10 second break during the 4th minute.
--- NOTE | 2025-05-26 13:24 | PCM.PSN.6M ---
PSN 6 Minute Walk Test 6 Minute Walk Test 6 Minute Walk Test: 6 Minute Walk Test PSN:6-Minute Walk Test Start: 05/25/25 12:47 Freq: Status: Active Protocol: RESP.6MINW Document 05/25/25 12:47 DARREL (Rec: 05/25/25 12:56 DARREL [id number]) 6 Minute Walk Test Date Performed 05/25/25 Time Performed 12:30 Height 5 ft 11 in Weight: 138 lb Weight in Pounds 138.[address]: Cristi Hahn Assistive device None used: Pre-test Oxygen Delivery Room Air Method Pulse Ox (%) 95 Pulse Rate (60-100 62 beats/min) Dyspnea Steven Scale ( 0 0-10) Exertion Steven Scale 6 (6-20) 1st minute Oxygen Delivery Room Air Method Pulse Ox (%) 93 Pulse Rate (60-100 104 H beats/min) 2nd minute Oxygen Delivery Room Air Method Pulse Ox (%) 87 Pulse Rate (60-100 105 H beats/min) 3rd minute Oxygen Flow Rate (L/ 2 min) (L/min) Oxygen Delivery Nasal Cannula Method Pulse Ox (%) 92 Pulse Rate (60-100 92 beats/min) 4th minute Oxygen Flow Rate (L/ 2 min) (L/min) Oxygen Delivery Nasal Cannula Method Pulse Ox (%) 93 Pulse Rate (60-100 106 H beats/min) Number of Rests 1 Taken 5th minute Oxygen Flow Rate (L/ 2 min) (L/min) Oxygen Delivery Nasal Cannula Method Pulse Ox (%) 92 Pulse Rate (60-100 95 beats/min) 6th minute Oxygen Flow Rate (L/ 2 min) (L/min) Oxygen Delivery Nasal Cannula Method Pulse Ox (%) 91 Pulse Rate (60-100 106 H beats/min) Dyspnea Steven Scale ( 4 0-10) Exertion Steven Scale 12 (6-20) Post-test Oxygen Flow Rate (L/ 2 min) (L/min) Oxygen Delivery Nasal Cannula Method Pulse Ox (%) 97 Pulse Rate (60-100 72 beats/min) Full Laps Walked 12 Partial Lap, Number 42 of Tiles Walked Total Distance 750 Walked (ft) 05/25/25 12:52 Cardiopulmonary Services by Bharti Reddy Patient has O2 at home that he wears when needed. He is looking to get a POC as he is very active and does not have anything portable. Started the testing on room air, SpO2 87% a little after the 2 minute rashaun, placed patient on 2 lpm, SpO2 recovered to 95%. Patient walked the rest of the 6 minutes on 2 lpm O2 with one brief 5-10 second break during the 4th minute. Initialized on 05/25/25 12:52 - END OF NOTE Interpretation Interpretation: The patient ambulated 750 feet over the course of 6 minutes beginning on room air without assistive devices. Pretesting oxygen saturation was noted to be 95% on room air. With ambulation, the samantha oxygen saturation was 87%, requiring the initiation of 2 L/min of supplemental oxygen. Recommendations Recommendations: 2 L/min of supplemental oxygen should be utilized with exertion.
== END | disposition home or self-care (01) ==
LOC: PSN 12:18
PROVIDERS: PCP Nurse Practitioner Primary Care; Referring Provider Internal Medicine Critical Care Medicine; Visit Provider Internal Medicine Critical Care Medicine
DX: J96.11 Chronic respiratory failure with hypoxia (principal)
CPT/HCPCS: 94618